=== PATIENT | female | born 1940 | race Caucasian/White ===

== ENCOUNTER 2016-06-26 07:46 | Outpatient (CLI) | payer MEDICARE, OTHER | END 2016-06-26 07:47 | disposition home or self-care (01) | DX: Z00.00 Encounter for general adult medical examination without abnormal findings (principal); E87.8 Other disorders of electrolyte and fluid balance, not elsewhere classified; E55.9 Vitamin D deficiency, unspecified; E78.5 Hyperlipidemia, unspecified ==

== ENCOUNTER 2016-07-21 08:16 | Outpatient (CLI) | payer MEDICARE, OTHER ==
--- NOTE | 2016-07-23 14:46 | Mammography Report ---
DIGITAL SCREENING MAMMOGRAM: 07/21/2016 CLINICAL INDICATION: A 75-year-old with history of benign left breast biopsy for screening. COMPARISON: 08/2014, 07/2013, 06/2012, 06/2011, 06/2010, 05/2009, 11/2007. TECHNIQUE: Routine CC and MLO projections were obtained of the breasts as well as bilateral laterall y exaggerated craniocaudal views. FINDINGS: The breasts demonstrate heterogeneously dense fibroglandular parenchyma bilaterally. Coar se, typically benign calcifications are present. Postbiopsy changes in the left lower central breast are stable. No suspicious masses, clustered microcalcifications, or regions of architectural distor tion are identified. IMPRESSION: BENIGN FINDINGS. RECOMMENDATION: Routine annual screening unless otherwise clinically indicated. BI-RADS category 2, benign findings. STANDARD QUALIFYING STATEMENTS 1. This examination was reviewed with the aid of Computer-Aided Detection (CAD). 2. A negative or benign imaging report should not delay biopsy if clinically suspicious findings are present. Consider surgical consultation if warranted. More than 5% of cancers are not identified by i maging. 3. Dense breasts may obscure an underlying neoplasm. JOB #: [id number] EXT JOB #:[id number]
== END 2016-07-21 08:17 | disposition home or self-care (01) ==
LOC: DI 08:16
PROVIDERS: ATTEND Physician Assistant Medical
DX: Z12.31 Encounter for screening mammogram for malignant neoplasm of breast (principal)
CPT/HCPCS: 77067

== ENCOUNTER 2017-03-30 12:01 | Outpatient (CLI) | payer MEDICARE, OTHER ==
[2017-03-30 12:44] LABS: BILIRUBIN,URINE NEGATIVE (NEGATIVE); GLUCOSE, URINE (UA) NEGATIVE (NEGATIVE); KETONES,URINE (UA) NEGATIVE (NEGATIVE); LEUKOCYTE ESTERASE, URINE NEGATIVE (NEGATIVE); NITRITE,URINE NEGATIVE (NEGATIVE); OCCULT BLOOD,URINE TRACE-INTA (NEGATIVE); PROTEIN,URINE NEGATIVE (NEGATIVE); UROBILINOGEN,URINE 0.2 (NORMAL) E.U./dL (NORMAL)
[2017-03-30 12:46] LABS: ALBUMIN 4.5 g/dL (3.2-5.5); ALBUMIN/GLOBULIN RATIO 1.6 (1.0-2.2); BASOPHILS # (AUTO) 0.1 10^3/uL (0.0-0.1); BASOPHILS % (AUTO) 1.5 %; BILIRUBIN,TOTAL 0.5 mg/dL (0.2-1.0); CALCIUM 9.5 mg/dL (8.5-10.3); CREATININE 0.9 mg/dL (0.4-1.0); EOSINOPHILS # (AUTO) 0.1 10^3/uL (0.0-0.7); EOSINOPHILS % (AUTO) 1.2 %; HGB - HEMOGLOBIN 13.9 g/dL (12.0-16.0); LYMPHOCYTES % (AUTO) 27.6 %; MEAN CORPUSCULAR HGB CONC 35.5 g/dL (32.0-36.0); MEAN CORPUSCULAR VOLUME 78.8 fL (81.0-99.0); MEAN PLATELET VOLUME 7.7 fL (7.9-10.8); MONOCYTES # (AUTO) 0.4 10^3/uL (0.0-1.0); NEUTROPHILS # (AUTO) 4.6 10^3/uL (1.5-6.6); NEUTROPHILS % (AUTO) 63.7 %; PLT - PLATELET COUNT 252 10^3/uL (130-450); RED BLOOD COUNT 4.96 10^6/uL (4.20-5.40); RED CELL DISTRIBUTION WIDTH 13.4 % (12.0-15.0); TOTAL PROTEIN 7.4 g/dL (6.7-8.2); WHITE BLOOD COUNT 7.2 x10^3/uL (4.8-10.8)
[2017-03-30 12:48] LABS: CLARITY,URINE CLEAR (CLEAR)
== END 2017-03-30 12:02 | disposition home or self-care (01) ==
LOC: LAB 12:01
PROVIDERS: ATTEND Obstetrics & Gynecology
DX: N81.4 Uterovaginal prolapse, unspecified (principal); N39.3 Stress incontinence (female) (male)
CPT/HCPCS: 36415; 80053; 81003; 85025; 86850; 86900; 86901; 93005

== ENCOUNTER 2017-03-31 06:08 | Inpatient (IN) | payer MEDICARE, OTHER ==
--- NOTE | 2017-03-30 17:21 | PREOP HISTORY & PHYSICAL ---
DATE OF SERVICE: 03/31/2017 Physician: Avinash Rose MD DIAGNOSES 1. Uterovaginal prolapse (grade 2). 2. Stress urinary incontinence. 3. Fecal incontinence, thought to be secondary to mobility. 4. Osteopenia. 5. Eryn disease with resultant hypothyroidism. INTENDED PROCEDURE: Abdominal hysterectomy (subtotal); sacral colpopexy with mesh; Everett procedure; insertion of suprapubic catheterization. HISTORY OF PRESENT ILLNESS: Patient is a 76-year-old 3, para 3 woman who has had unsuccessful pessary trial. She has had several different pessaries fitted by Dr. Latham. She finds without the pessary she develops midline pelvic pain. Pessary does improve stress urinary incontinence. 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 She lives with her . Most of her urine loss is small volume. There is no urge incontinence component. She was given topical estrogen in preparation for surgery without ill effect. She has never had an abnormal Pap smear. Her last Pap was in 2005. There is no history of postmenopausal bleeding. PAST MEDICAL HISTORY: The patient has hypercholesterolemia. Additionally, she had Eryn disease and subsequent hypothyroidism. Her hypothyroidism is managed by her PCP. The patient has only had 1 vaginal that was via forceps. It was a male weighing 3515 grams. She notes that after the delivery of her second child, she developed a DVT. PAST SURGICAL HISTORY 1. Lumpectomy 1985; 2. Sinus surgery 2013; 3. Tonsillectomy in 1959. 4. Varicose vein stripping 2008. 5. Retinal detachment repair in 2011. ALLERGIES: NO KNOWN DRUG ALLERGIES. MEDICATIONS: Levothyroxine 0.11. REVIEW OF SYSTEMS CONSTITUTIONAL: Negative. HEENT: Sinus headaches occasionally. CARDIOVASCULAR: No irregular heartbeat, skipped beats or chest pain. RESPIRATORY: Negative. No shortness of breath. GI: Negative. GENITOURINARY: Stress urinary incontinence, pelvic pressure and pain and occasional loss of stool. Reference HPI. MUSCULOSKELETAL: Osteopenia. DERMATOLOGIC: Negative. BREASTS: No mass, no tenderness. NEUROLOGIC: Negative. PSYCHOLOGIC: Negative. FAMILY HISTORY: Asthma mother. No inheritable diseases noted. Longevity. SOCIAL HISTORY: , never smoker. No drug tobacco or alcohol use, picky about eating habits. PHYSICAL EXAMINATION GENERAL: Well groomed. Alert and oriented, and cooperative, slender build. NECK: Supple neck. No thyromegaly. HEENT: Good oral hygiene. No pharyngitis. Nonicteric sclerae. CARDIAC: Regular. No significant murmur or gallop. LUNGS: Clear to auscultation. No wheeze. ABDOMEN: Flat, soft, nontender. No herniation detected. No mass. SKIN: Smooth and clear. NEUROLOGIC: Fluent speech, good sense of humor. Moves all 4 extremities well. Cranial nerves grossly intact. PSYCHOLOGIC: Does not appear to be anxious, alert. BREASTS: Deferred. PELVIC: External genitalia normal BUS; No lesions, slight atrophy. Urethral palpation normal. UV mobility noted with stress incontinence on cough. VAGINA: Cystocele noted grade 2 with a rectocele grade 3 without a pessary. Poor apical support. CERVIX: Hypermobility, hyperkeratosis. UTERUS: A 6-week size third-degree prolapse. ADNEXA: Difficult to evaluate, but no mass or tenderness noted. ASSESSMENT AND PLAN: Patient is a 76-year-old woman who enjoys good health and is active. Prolapse degrades her quality of life, and she has failed pessary treatment. She seeks a surgical solution. We discussed various solutions including colpocleisis, aggressive anterior and posterior repair with colposuspension (sacrospinous colpopexy) and expectant management. The patient desires the most resilient repair because of the longevity in her family. We discussed sacral colpopexy with mesh, combined with a subtotal hysterectomy, Everett procedure and removal of ovaries and tubes. She desires this procedure because of its resilience but recognizes the more risk due to blood loss, infection and complexity of surgery. Risks were discussed, inclusive of blood loss, transfusion, infection, damage to bladder and ureters and damage to abdominal viscera. She realizes in extreme situations anesthesia reaction or other factors could result in . In discussing bladder training methods, she would prefer the suprapubic to avoid self straight cathing. Informed consent paperwork was completed. In preparation for surgery she will be in a low dorsal lithotomy position. We will need Y [employer] mesh available. LigaSure needed and hysteroscopy set for inspection of bladder and insertion of suprapubic catheter. TD: 03/30/2017 16:35 LIGIA
[2017-03-31] MEDS ORDERED: ceFAZolin 2 GM/50 ML 2 GM/50 ML BAG IV ONE (06:38)
[2017-03-31] MEDS ORDERED: LACTATED RINGERS 1,000 ML IV ONE ×3 (06:47→10:02)
[2017-03-31] MEDS ORDERED: MORPHINE 2 MG/ML SYRINGE IVP PRN (07:35)
[2017-03-31] MEDS ORDERED: ONDANSETRON ODT 4 MG TABLET TL PRN (07:35)
[2017-03-31] MEDS ORDERED: HYDROcod/ACETAM 5/325 MG TABLET PO PRN (07:35)
[2017-03-31] MEDS ORDERED: SODIUM CHLORIDE FLUSH 0.9% 10 ML SYRINGE IVP PRN (07:35)
--- NOTE | 2017-03-31 08:06 | OPERATIVE REPORT ---
Operative Report - General Admit Date: 03/31/17 Planned Procedure: Pelvic reconstruction Pre-Op Diagnosis: Uterine/vaginal prolapse grade 3; stress urinary incontinence Procedure Performed: Sacral colpopexy with Y mesh; Everett procedure; Subtotal abdominal hysterectomy; Bilateral salpingo-oophorectomy; insertion of suprapubic catheter; cystoscopy Post Op Diagnosis: Same as above - Procedure Note Primary Surgeon: Avinash Rose MD, F ACOG, FICS Secondary Surgeon: Avinash Stokes MD, F ACOG Anesthesia Technique: Combo spinal/epidural Pathology: Uterus, tubes and ovaries Estimated Blood Loss (mL): 200 Urine Output (mL): 150 Drain/Tube Type: Other (Suprapubic urinary catheter) Complications: Nonoe - Other Other Information/Narrative: Full dictation of the procedure done
[2017-03-31] MEDS ORDERED: GENTAMICIN 40 MG/1 ML 2 ML MDV ONE ×2 (09:14→10:20)
[2017-03-31] MEDS ORDERED: GENTAMICIN 40 MG/1 ML 2 ML MDV IL ONE ×2 (09:52→10:16)
[2017-03-31] MEDS ORDERED: fent/BUPIV 2 MCG/0.125% 250 ML EP ONE (12:10)
--- NOTE | 2017-03-31 12:46 | PROCEDURE REPORT ---
DATE OF SERVICE: 03/30/2017 Physician: Avinash Rose MD PREOPERATIVE DIAGNOSIS: Uterovaginal prolapse, grade 3; stress urinary incontinence. POSTOPERATIVE DIAGNOSIS: Uterovaginal prolapse, grade 3; stress urinary incontinence. Pelvic congestion syndrome with extensive varicosities. PROCEDURE PERFORMED: Sacral colpopexy with [employer] Y mesh; Everett procedure; subtotal hysterectomy; insertion of a suprapubic catheter; bilateral salpingo-oophorectomy. SURGEON: Avinash Rose MD, FACOG, FICS. STRUCTURES ENGINEER: Avinash Reed MD, FACOG. 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 ANESTHESIA TYPE: Combination spinal/epidural. PATHOLOGY: Tubes and ovaries with uterine corpus. IV FLUIDS: Approximately 1200 mL. BLOOD LOSS: 200 mL COMPLICATIONS: None. URINE OUTPUT 150-200 clear urine. DRAINS: Suprapubic catheter. FINDINGS: Prior to surgery, a second degree uterovaginal prolapse was found with the cervix extruding to the introitus. Note that in office exam, there was a third degree uterovaginal prolapse with the patient in the standing position. At the time of laparotomy, the uterus was found to be multinodular with multiple fibroids. Ovaries appeared to be normal as did the tubes. The pelvis had numerous large varicosities and hypervascularity. Postprocedure cystoscopy found the bladder to be undamaged. Free flowing urine from the left and right ureteric jets. Postoperative examination of the vagina finds the uterus well suspended into the pelvis. There was no notable cystorectocele. TECHNIQUE: Prior to the procedure, I had a final discussion with the patient and her . Mechanics, risks and benefits were reviewed and she consents to a reconstructive surgery. The patient was brought to the operating room, placed in sitting position for placement of spinal/epidural. Regional anesthesia was uneventfully placed and she was moved to the supine and then to the low dorsal lithotomy position using mobile Yellofin stirrups. She was prepped and draped in the customary sterile fashion inclusive of Monroe catheter. Sponge stick was placed into the vagina. A timeout briefing was done per protocol. Before the procedure began, we ensured that anesthesia was good through to level T10. The abdominal wall was uneventfully entered with a Pfannenstiel incision. The abdominal contents were then packed superiorly. Fabiano retractor was placed, however, it did not provide sufficient retraction and it was replaced with a Hernandez O'Carlos A retractor. The abdominal contents were inspected and there were found to be numerous varicosities and hypervascularity. The uterine fundus was grasped with a single-tooth tenaculum and tented superiorly. Beginning on the left side, the ovaries and tubes were retracted medially and superiorly. The ovarian vessels and infundibulopelvic ligament was uneventfully desiccated and divided with LigaSure. Next, the round ligaments were uneventfully desiccated and divided. The Metzenbaums were used to continue dissection towards the uterines. The uterine vessels were desiccated and divided. This process was then repeated uneventfully on the left hand side. The uterus was then circumscribed at the isthmus with monopolar cautery. The uterus was then removed in total. In preparation for apical suspension, the peritoneum of the bladder flap was mobilized with sharp dissection and electrocautery for a distance of approximately 6 cm. This process was done in a similar fashion to a distance of roughly 8 cm in the posterior aspect. These areas were rinsed with antibiotic enriched irrigant. Next, attention was turned to the sacral dissection. Midline was identified and the limits of the bony sacrum. The rectal colon was retracted laterally to the left, revealing the mesentery. In a free vascular space, the mesentery was entered with electrocautery and incision was carried downward to the pelvis at roughly the level just above the pubis. Using electrocautery and judicious sharp dissection, the fascia above the sacrum, S1 to S2, was exposed. A series of three interrupted sutures of 0 Ethibond were placed in a row across the S1, S2 vertebrae level, anchoring them firmly into the fascia. Middle sacral vein was desiccated to prevent bleeding. Next, the Y mesh was brought out and tailored to the appropriate lengths for the vaginal phase. The anterior leaf of the mesh was then tacked deep and inferiorly to the extent of the dissection using 0 Vicryl, a total of 3 stitches were placed. Next, the lateral portions of mesh were tacked down, 4 stitches on each side of 4-0 Vicryl. In the middle of the mesh tacking sutures of 0 Vicryl were placed. Next, this process was repeated in the posterior vaginal dissection, laying a flat leaf of the mesh against the vaginal wall. The posterior dissection peritoneum was then sewn to the far extent of the medial leaf of sacral dissection and the beginnings of a tunnel created for the extended arm of the mesh. The base mesh arm was then brought to the area of the sacral promontory and adjusted so that there was no tension. At this length, the sacral promontory stitches were then passed through the mesh and the mesh laid snugly and without buckling onto the promontory. The remainder of the peritoneum was then reapproximated creating a peritoneal tunnel for the graft. Note that the graft was confirmed not to be on tension. All operative sites were inspected and found to be hemostatically secure. The instruments were removed from the abdomen, and all packing sponges.. Sponge, needle counts and instrument count were confirmed as correct. The parietal peritoneum was then closed with a running stitch of 2-0 Vicryl. Next, we started Everett procedure. The space of Retzius on both sides were developed and exposed. The Monroe bulb was identified. Medial stitches of 0 Ethibond were placed 1 cm lateral and 1 cm below the UVJ junction, second stitches of Ethibond approximately a cm below and 1.5 cm lateral were then placed on each side. There was bleeding noted on the left medial stitch. This was ligated with 2-0 Vicryl and secured. The vaginal sutures then were passed through the conjoined ligament, creating a V-like suspension of tissue. Care was taken not to over tighten and approximately 1.5 cm or 2 cm of violin string were left. The bladder was then backfilled with sterile normal saline. A small incision was placed with electrocautery in the bladder dome and a hysteroscope inserted. A cystoscopy was conducted and did confirm that there was no incursion into the bladder and both the right and left ureter were functional. At this point, a Monroe catheter was placed through the abdominal wall and through the cystotomy wound. The bulb was inflated and pursestring tied tight to seal the bladder. Fascia was closed with running sutures of 0 Vicryl. Reinforcing interrupted stitches of 0 Vicryl were also placed. The subcutaneous space was closed with interrupted sutures of 2-0 Vicryl. Skin was closed with jil. Suprapubic catheter was then secured with a stitch of 2-0 silk. All wounds were then dressed with antibiotic salve and a clean dry compression bandage. Final sponge, needle & instrument count confirmed correct. A transurethral Monroe was removed from the bladder. A sponge was noted to have a single suture of Vicryl entangling it. This suture was cut and the sponge was uneventfully removed. TD: 03/31/2017 13:45 LIGIA
[2017-03-31] MEDS: SODIUM CHLORIDE FLUSH 0.9% 10 ML SYRINGE IVP SCH ×2 (13:20→18:44)
[2017-03-31] MEDS: POLYETHYLENE GLYCOL 3350 17 GM PACKET PO SCH (13:20)
[2017-03-31] MEDS: LACTATED RINGERS 1,000 ML IV SCH ×2 (13:22→22:08)
[2017-03-31] MEDS ORDERED: NALBUPHINE 20 MG/ML AMP IVP PRN (15:58)
[2017-03-31] MEDS ORDERED: fent/BUPIV 2 MCG/0.125% 250 ML EP PRN (15:58)
[2017-03-31] MEDS ORDERED: ONDANSETRON 4 MG/2 ML VIAL IVP PRN (15:58)
--- NOTE | 2017-03-31 17:25 | PROVIDER PROGRESS NOTE ---
Subjective - Prog Note Date Prog Note Date: 03/31/17 Prog Note Time: 17:30 - Subjective Pt reports feeling: Improved Subjective: Patient is alert and up in bed talking with her . She reports complete pain relief. She notes complete numbness and weakness in her left leg. These changes are most likely secondary to continued epidural.We reviewed the care plan for tomorrow inclusive of epidural discontinuation and bladder training. Objective - Vital Signs/Intake & Output Vital Signs: Vital Signs x48h Temp Pulse Resp BP Pulse Ox 03/31/17 15:36 97.3 F L 67 18 113/53 L 100 03/31/17 13:36 97.2 F L 69 16 108/53 L 100 03/31/17 13:06 97.5 F L 60 16 102/61 100 03/31/17 12:44 95 03/31/17 12:35 100 03/31/17 12:25 96 03/31/17 12:15 97 03/31/17 12:05 100 03/31/17 12:00 100 03/31/17 11:55 100 03/31/17 11:50 100 Intake & Output: Intake & Output 03/28/17 03/29/17 03/30/17 03/31/17 23:59 23:59 23:59 23:59 Output Total 975 Balance -975
[2017-04-01] MEDS: IBUPROFEN 600 MG TABLET PO PRN ×4 (00:05→19:53)
[2017-04-01 06:43] LABS: HGB - HEMOGLOBIN 11.8 g/dL (12.0-16.0)
[2017-04-01 06:46] LABS: BASOPHILS % (AUTO) 0.5 %; EOSINOPHILS # (AUTO) 0.1 10^3/uL (0.0-0.7); EOSINOPHILS % (AUTO) 1.2 %; LYMPHOCYTES % (AUTO) 22.5 %; MEAN CORPUSCULAR HEMOGLOBIN 27.9 pg (27.0-31.0); MEAN CORPUSCULAR HGB CONC 32.9 g/dL (32.0-36.0); MONOCYTES # (AUTO) 0.8 10^3/uL (0.0-1.0); MONOCYTES % (AUTO) 8.6 %; NEUTROPHILS % (AUTO) 67.2 %; PLT - PLATELET COUNT 189 10^3/uL (130-450); RED BLOOD COUNT 4.24 10^6/uL (4.20-5.40); RED CELL DISTRIBUTION WIDTH 13.8 % (12.0-15.0); WHITE BLOOD COUNT 8.9 x10^3/uL (4.8-10.8)
[2017-04-01] MEDS: SODIUM CHLORIDE FLUSH 0.9% 10 ML SYRINGE IVP SCH ×3 (06:46→19:03)
[2017-04-01 06:54] LABS: ALBUMIN 2.9 g/dL (3.2-5.5); ALBUMIN/GLOBULIN RATIO 1.4 (1.0-2.2); BILIRUBIN,TOTAL 0.6 mg/dL (0.2-1.0); CALCIUM 8.3 mg/dL (8.5-10.3); CREATININE 0.8 mg/dL (0.4-1.0)
[2017-04-01] MEDS: LACTATED RINGERS 1,000 ML IV SCH ×2 (07:50→18:39)
[2017-04-01] MEDS ORDERED: ENOXAPARIN 40 MG/0.4 ML SYRINGE SUBQ SCH (09:00)
[2017-04-01] MEDS ORDERED: ePHEDrine 50 MG/ML VIAL IVP ONE (10:15)
[2017-04-01] MEDS ORDERED: PHENYLEPHRINE 50 MG/5 ML VIAL IV ONE (10:15)
[2017-04-01] MEDS ORDERED: GLYCOPYRROLATE 1 MG/5 ML VIAL IVP ONE (10:15)
[2017-04-01] MEDS ORDERED: PROPOFOL 200 MG/20 ML VIAL IVP ONE (10:15)
[2017-04-01] MEDS ORDERED: MIDAZOLAM 2 MG/2 ML VIAL IVP ONE (10:15)
[2017-04-01] MEDS ORDERED: BUPIVACAINE 0.25% PF 10 ML VIAL SUBQ ONE (10:15)
[2017-04-01] MEDS ORDERED: MORPHINE PF 5 MG/10 ML AMP EP ONE (10:15)
[2017-04-01] MEDS ORDERED: BUPIVACAINE 0.5%-EPI 1:200000 PF 30 ML VIAL SUBQ ONE (10:15)
--- NOTE | 2017-04-01 10:26 | ANESTHESIA POST OP EVALUATION ---
Anesthesia Post Eval - Post Anesthesia Eval CV Function Including HR & BP: positive: Stable Pain Control: positive: Adequate Nausea & Vomiting: positive: Negative Mental Status: positive: Appropriate Anesthesia Complications: positive: None - Other Details/Therapies Other Details/Therapies: Followed up with patient regarding post op epidural. Surgeon ordered epidural stopped at 0600. Epidural d/c'd at this time with tip intact. Patient reported good pain control while epidural was infusing. Denies any complications.
[2017-04-01] MEDS: POLYETHYLENE GLYCOL 3350 17 GM PACKET PO SCH (10:27)
[2017-04-01] MEDS: SENNA 8.6 MG TABLET PO PRN ×2 (10:28→23:38)
[2017-04-01] MEDS: LEVOTHYROXINE 112 MCG TABLET PO SCH (10:31)
[2017-04-01] MEDS: HYDROcod/ACETAM 5/325 MG TABLET PO PRN ×3 (16:03→23:38)
--- NOTE | 2017-04-01 18:10 | PROVIDER PROGRESS NOTE ---
Subjective - General Admit Date: 03/31/17 Procedure Date: 03/31/17 Post Op Days: 1 Procedure Performed: Sacral colpopexy with Mesh; subtotal hysterectomy with BSO ; Everett procedure - Review of Systems Wound/Incisions: positive: Dressing dry and intact Drain Type: Suprapubic Drain Output Description: Clear urine General: positive: No symptoms HEENT: positive: No symptoms Pulmonary: positive: No symptoms Cardiovascular: positive: No symptoms Gastrointestinal: positive: No symptoms Genitourinary: positive: Pain (Appropriate pain for pelvic reconstruction) Musculoskeletal: positive: No symptoms Skin: positive: No symptoms Neurological: Psychiatric: positive: No symptoms Objective - Patient Data Vital Signs: Vital Signs x48h Temp Pulse Resp BP Pulse Ox 04/01/17 15:28 98.6 F 81 18 124/56 L 95 04/01/17 13:16 98.1 F 78 16 126/66 97 Weight: Weight 03/30/17 03/31/17 04/01/17 23:59 23:59 23:59 Weight (kg) 61.3 kg Intake & Output: Intake and Output Totals x24h 03/30/17 03/31/17 04/01/17 23:59 23:59 23:59 Intake Total 7888.096 3528 Output Total 1625 2200 Balance -508.333 -620 - Lab Results Lab Results: 04/01/17 06:35 04/01/17 06:35 Other Lab Results: Lab Results x24hrs 04/01/17 04/01/17 Range/Units 06:35 06:35 WBC 8.9 (4.8-10.8) x10^3/uL RBC 4.24 (4.20-5.40) 10^6/uL Hgb 11.8 L (12.0-16.0) g/dL Hct 36.0 L (37.0-47.0) % MCV 85.0 (81.0-99.0) fL MCH 27.9 (27.0-31.0) pg MCHC 32.9 (32.0-36.0) g/dL RDW 13.8 (12.0-15.0) % Plt Count 189 (130-450) 10^3/uL MPV 8.0 (7.9-10.8) fL Neut # 6.0 (1.5-6.6) 10^3/uL Lymph # 2.0 (1.5-3.5) 10^3/uL [place] # 0.8 (0.0-1.0) 10^3/uL Eos # 0.1 (0.0-0.7) 10^3/uL Baso # 0.0 (0.0-0.1) 10^3/uL Absolute Nucleated RBC 0.00 x10^3/uL Nucleated RBC % 0.0 /100WBC Sodium 133 L (135-145) mmol/L Potassium 3.9 (3.5-5.0) mmol/L Chloride 101 (101-111) mmol/L Carbon Dioxide 26 (21-32) mmol/L Anion Gap 6.0 (6-13) BUN 17 (6-20) mg/dL Creatinine 0.8 (0.4-1.0) mg/dL Estimated GFR (MDRD) 70 L (>89) Glucose 115 H (70-100) mg/dL Calcium 8.3 L (8.5-10.3) mg/dL Total Bilirubin 0.6 (0.2-1.0) mg/dL AST 24 (10-42) IU/L ALT 15 (10-60) IU/L Alkaline Phosphatase 48 (42-121) IU/L Total Protein 5.0 L (6.7-8.2) g/dL Albumin 2.9 L (3.2-5.5) g/dL Globulin 2.1 (2.1-4.2) g/dL Albumin/Globulin Ratio 1.4 (1.0-2.2) - Current Medications Current Medications: Current Medications Generic Name Dose Route Start Last Admin Trade Name Freq PRN Reason Stop Dose Admin Acetaminophen/Hydrocodone Bitart 1 tab 04/01/17 15:37 04/01/17 16:03 Friedens 5/325 PO 1 tab Q4HR PRN Administration PAIN Lactated Ringer's 1,000 mls @ 100 mls/hr 03/31/17 08:00 04/01/17 07:50 Lr IV 100 mls/hr .Q10H BLAIRE Administration Ibuprofen 600 mg 03/31/17 07:35 04/01/17 13:03 Motrin PO 600 mg Q6HR PRN Administration Pain 1 to 4 Levothyroxine Sodium 112 mcg 04/01/17 10:00 04/01/17 10:31 Synthroid PO 112 mcg QDAC BLAIRE Administration Nalbuphine HCl 2.5 - 5 mg 03/31/17 15:58 03/31/17 22:07 Nubain IVP 2.5 mg Q4HR PRN Administration Severe Itching Polyethylene Glycol 17 gm 03/31/17 09:00 04/01/17 10:27 Miralax PO 17 gm DAILY BLAIRE Administration Senna 8.6 mg 04/01/17 09:54 04/01/17 10:28 Senokot PO 8.6 mg DAILY PRN Administration Constipation Sodium Chloride 10 ml 03/31/17 14:00 04/01/17 11:34 Normal Saline Flush 0.9% IVP Not Given Q8HR BLAIRE Physical Exam - Physical Exam General: positive: No acute distress, Well developed/nourished, Alert HEENT: positive: EOMI, Moist mucous membranes Neck: positive: Supple w/out meningeal sx Cardiac: positive: Regular Rate, Regular Rhythm Resipratory: positive: Clear to ausultation brandon Abdomen: positive: Normal Bowel sounds, Other (Only mildly tender in the lower quadrants) Female : positive: Normal external, Other (Suprapubic catheter functional and sutured into place) Extremities: positive: Normal ROM. negative: Non tender Skin: positive: Warm and dry Neurologic: positive: Alert and Oriented X 3, Normal motor/no weakness, Normal Speech Assessment/Plan - Assessment/Plan Assessment: Patient is recovering normally from pelvic reconstructive surgery. She is cardiovascularly stable and there is no current evidence of DVT.Compression boots in place and shortly Lovenox will begin.Epidural anesthetic was discontinued earlier and expect sensation to gradually return.This may delay bladder training until 0900. Plan: Patient already on continuous Motrin 600 every 6 hours. Begin Friedens 325/5 1-2 tabs every 4 hours breakthrough pain.We will begin suprapubic bladder training when patient is ambulatory. Reviewed suprapubic bladder training with [place] the nurse present, all questions answered. Detailed orders put in to nursing note/ order.Patient is eager to begin bladder training
[2017-04-01] MEDS: MORPHINE 2 MG/ML CARPUJECT IVP PRN (19:03)
[2017-04-01] MEDS ORDERED: BACITRACIN OINT TOP PRN (20:37)
[2017-04-02] MEDS: IBUPROFEN 600 MG TABLET PO PRN ×2 (02:29→08:54)
[2017-04-02] MEDS: LACTATED RINGERS 1,000 ML IV SCH ×3 (02:32→20:41)
[2017-04-02] MEDS: HYDROcod/ACETAM 5/325 MG TABLET PO PRN ×2 (05:26→11:25)
--- NOTE | 2017-04-02 05:49 | PROVIDER PROGRESS NOTE ---
Subjective - General Admit Date: 03/31/17 Procedure Date: 03/31/17 Post Op Days: 2 Procedure Performed: Sacral colpopexy with Mesh; subtotal hysterectomy with BSO ; Everett procedure - Review of Systems Wound/Incisions: positive: Healing well ([place] dry, intact NO signs of serosa hematoma or infection) Drain Type: Suprapubic Drain Output Description: Clear urine Approximate mls Output: Average voided volume 250 cc, post void residuals 350 cc General: positive: No symptoms HEENT: positive: No symptoms Pulmonary: positive: No symptoms Cardiovascular: positive: No symptoms Gastrointestinal: positive: No symptoms Genitourinary: positive: Pain (Pain now controlled with combination of Motrin and [place]. Originally patient was hesitant to take pain meds but now understands the necessity) Musculoskeletal: positive: No symptoms, Other (No calf tenderness swelling or Homans sign) Skin: positive: No symptoms Psychiatric: positive: No symptoms Objective - Patient Data Vital Signs: Vital Signs x48h Temp Pulse Resp BP Pulse Ox 04/01/17 23:35 99.1 F 75 17 126/65 95 Weight: Weight 03/31/17 04/01/17 04/02/17 23:59 23:59 23:59 Weight (kg) 61.3 kg Intake & Output: Intake and Output Totals x24h 03/31/17 04/01/17 04/02/17 23:59 23:59 23:59 Intake Total 1936.379 0147 788.333 Output Total 1625 3250 1300 Balance -508.333 20 -511.667 - Lab Results Lab Results: 04/01/17 06:35 04/01/17 06:35 Other Lab Results: Lab Results x24hrs 04/01/17 04/01/17 Range/Units 06:35 06:35 WBC 8.9 (4.8-10.8) x10^3/uL RBC 4.24 (4.20-5.40) 10^6/uL Hgb 11.8 L (12.0-16.0) g/dL Hct 36.0 L (37.0-47.0) % MCV 85.0 (81.0-99.0) fL MCH 27.9 (27.0-31.0) pg MCHC 32.9 (32.0-36.0) g/dL RDW 13.8 (12.0-15.0) % Plt Count 189 (130-450) 10^3/uL MPV 8.0 (7.9-10.8) fL Neut # 6.0 (1.5-6.6) 10^3/uL Lymph # 2.0 (1.5-3.5) 10^3/uL [place] # 0.8 (0.0-1.0) 10^3/uL Eos # 0.1 (0.0-0.7) 10^3/uL Baso # 0.0 (0.0-0.1) 10^3/uL Absolute Nucleated RBC 0.00 x10^3/uL Nucleated RBC % 0.0 /100WBC Sodium 133 L (135-145) mmol/L Potassium 3.9 (3.5-5.0) mmol/L Chloride 101 (101-111) mmol/L Carbon Dioxide 26 (21-32) mmol/L Anion Gap 6.0 (6-13) BUN 17 (6-20) mg/dL Creatinine 0.8 (0.4-1.0) mg/dL Estimated GFR (MDRD) 70 L (>89) Glucose 115 H (70-100) mg/dL Calcium 8.3 L (8.5-10.3) mg/dL Total Bilirubin 0.6 (0.2-1.0) mg/dL AST 24 (10-42) IU/L ALT 15 (10-60) IU/L Alkaline Phosphatase 48 (42-121) IU/L Total Protein 5.0 L (6.7-8.2) g/dL Albumin 2.9 L (3.2-5.5) g/dL Globulin 2.1 (2.1-4.2) g/dL Albumin/Globulin Ratio 1.4 (1.0-2.2) - Current Medications Current Medications: Current Medications Generic Name Dose Route Start Last Admin Trade Name Freq PRN Reason Stop Dose Admin Acetaminophen/Hydrocodone Bitart 1 tab 04/01/17 15:37 04/02/17 05:26 [place] 5/325 PO 1 tab Q4HR PRN Administration PAIN Lactated Ringer's 1,000 mls @ 100 mls/hr 03/31/17 08:00 04/02/17 02:32 Lr IV 100 mls/hr .Q10H BLAIRE Administration Ibuprofen 600 mg 03/31/17 07:35 04/02/17 02:29 Motrin PO 600 mg Q6HR PRN Administration Pain 1 to 4 Levothyroxine Sodium 112 mcg 04/01/17 10:00 04/01/17 10:31 Synthroid PO 112 mcg QDAC BLAIRE Administration Morphine Sulfate 2 mg 04/01/17 15:38 04/01/17 19:03 Morphine (Carpuject) IVP 2 mg Q2HR PRN Administration PAIN Nalbuphine HCl 2.5 - 5 mg 03/31/17 15:58 03/31/17 22:07 Nubain IVP 2.5 mg Q4HR PRN Administration Severe Itching Polyethylene Glycol 17 gm 03/31/17 09:00 04/01/17 10:27 Miralax PO 17 gm DAILY BLAIRE Administration Senna 8.6 mg 04/01/17 09:54 04/01/17 23:38 Senokot PO 8.6 mg DAILY PRN Administration Constipation Sodium Chloride 10 ml 03/31/17 14:00 04/01/17 19:03 Normal Saline Flush 0.9% IVP 10 ml Q8HR BLAIRE Administration Physical Exam - Physical Exam General: positive: No acute distress HEENT: positive: Moist mucous membranes Neck: positive: Supple w/out meningeal sx, No JVD Abdomen: positive: Normal Bowel sounds, Other (Slight bloating; No bowel movement despite laxatives) Female : positive: Normal external, Other (Suprapubic catheter intact and functional), Cheese Cook present Extremities: positive: No pedal edema, Non tender, Pedal Pulses Present Skin: positive: Warm and dry Neurologic: positive: Alert and Oriented X 3, Normal motor/no weakness, Normal Sensation, Normal Speech Assessment/Plan - Assessment/Plan Assessment: Patient recovering as expected from reconstructive surgery without evident complications. Patient's medical condition is stable. Due to prior history of DVT, Lovenox is being used for this hospitalization. Post Everett procedure bladder training proceeding somewhat slowly because of semi-flaccid bladder with probable over distention preop That in turn leads to voiding dysfunction. First day bladder training went well and patient must learn to manage the Suprapubic voiding training on her own prior to discharge. Plan: Plan for Wednesday * Continue suprapubic bladder training with patient doing all the steps successfully. * Nursing education and supervision of self directed suprapubic bladder training. If patient cannot achieve competence possibly we can enlist a family member to supervise this activity. * Nursing education on suprapubic care * Continue combination Motrin/[place] analgesics * Patient to ambulate the halls at least 3 times daily * Continue Lovenox * Continue stool softener and laxative regimen * Dr. Katherine Hernandez to become managing attending physician for the remainder of patient's hospitalization. * Have patient schedule a postoperative appointment with me on Wednesday, * creative services writer assessment and recommendations for supportive services post discharge
[2017-04-02] MEDS: SODIUM CHLORIDE FLUSH 0.9% 10 ML SYRINGE IVP SCH ×3 (06:42→19:46)
[2017-04-02] MEDS: LEVOTHYROXINE 112 MCG TABLET PO SCH (06:44)
[2017-04-02] MEDS: ENOXAPARIN 40 MG/0.4 ML SYRINGE SUBQ SCH (08:52)
[2017-04-02] MEDS: POLYETHYLENE GLYCOL 3350 17 GM PACKET PO SCH (08:54)
[2017-04-02] MEDS ORDERED: MAGNESIUM HYDROXIDE 2,400 MG/30 ML UDC PO ONE (16:05)
[2017-04-02] MEDS: SIMETHICONE CHEW 80 MG TABLET PO SCH ×2 (19:51→19:52)
[2017-04-02] MEDS: MORPHINE 2 MG/ML CARPUJECT IVP PRN (21:14)
[2017-04-03] MEDS: SODIUM CHLORIDE FLUSH 0.9% 10 ML SYRINGE IVP SCH (05:36)
[2017-04-03] MEDS: LEVOTHYROXINE 112 MCG TABLET PO SCH (06:00)
[2017-04-03] MEDS: LACTATED RINGERS 1,000 ML IV SCH (06:01)
[2017-04-03] MEDS: SIMETHICONE CHEW 80 MG TABLET PO SCH (09:13)
[2017-04-03] MEDS: POLYETHYLENE GLYCOL 3350 17 GM PACKET PO SCH (09:13)
[2017-04-03] MEDS: ENOXAPARIN 40 MG/0.4 ML SYRINGE SUBQ SCH (09:13)
--- NOTE | 2017-04-03 09:52 | PROVIDER PROGRESS NOTE ---
Subjective - General Admit Date: 03/31/17 Procedure Date: 03/31/17 Post Op Days: 3 Procedure Performed: Sacral colpopexy with Mesh; subtotal hysterectomy with BSO ; Everett procedure - Review of Systems Wound/Incisions: positive: Healing well ([place] dry, intact NO signs of serosa hematoma or infection. No erythema, or edema.) Drain Type: Suprapubic Drain Output Description: Clear urine Approximate mls Output: Average voided volume 250 cc, post void residuals 350 cc General: positive: No symptoms HEENT: positive: No symptoms Pulmonary: positive: No symptoms Cardiovascular: positive: No symptoms Gastrointestinal: positive: No symptoms Genitourinary: positive: Pain (Pain now controlled with combination of Motrin and [place]. Originally patient was hesitant to take pain meds but now understands the necessity) Musculoskeletal: positive: No symptoms, Other (No calf tenderness swelling or Homans sign) Skin: positive: No symptoms Psychiatric: positive: No symptoms Objective - Patient Data Vital Signs: Vital Signs x48h Temp Pulse Resp BP Pulse Ox 04/03/17 08:15 99.5 F 80 18 130/70 96 04/03/17 06:14 99.3 F 84 16 130/63 93 Intake & Output: Intake and Output Totals x24h 04/01/17 04/02/17 04/03/17 23:59 23:59 23:59 Intake Total 3270 3863.333 1233.333 Output Total 3250 5965 925 Balance 20 -2101.667 308.333 - Lab Results Lab Results: 04/01/17 06:35 04/01/17 06:35 - Current Medications Current Medications: Current Medications Generic Name Dose Route Start Last Admin Trade Name Freq PRN Reason Stop Dose Admin Acetaminophen/Hydrocodone Bitart 1 tab 04/01/17 15:37 04/02/17 11:25 [place] 5/325 PO 1 tab Q4HR PRN Administration PAIN Enoxaparin Sodium 40 mg 04/02/17 09:00 04/03/17 09:13 Lovenox SUBQ 40 mg DAILY BLAIRE Administration Lactated Ringer's 1,000 mls @ 100 mls/hr 03/31/17 08:00 04/03/17 06:01 Lr IV 100 mls/hr .Q10H BLAIRE Administration Ibuprofen 600 mg 03/31/17 07:35 04/02/17 08:54 Motrin PO 600 mg Q6HR PRN Administration Pain 1 to 4 Levothyroxine Sodium 112 mcg 04/01/17 10:00 04/03/17 06:00 Synthroid PO 112 mcg QDAC BLAIRE Administration Morphine Sulfate 2 mg 04/01/17 15:38 04/02/17 21:14 Morphine (Carpuject) IVP 2 mg Q2HR PRN Administration PAIN Nalbuphine HCl 2.5 - 5 mg 03/31/17 15:58 03/31/17 22:07 Nubain IVP 2.5 mg Q4HR PRN Administration Severe Itching Ondansetron HCl 4 mg 03/31/17 15:58 04/02/17 21:10 Zofran Inj IVP 4 mg Q6HR PRN Administration Nausea / Vomiting Polyethylene Glycol 17 gm 03/31/17 09:00 04/03/17 09:13 Miralax PO 17 gm DAILY BLAIRE Administration Senna 8.6 mg 04/01/17 09:54 04/01/17 23:38 Senokot PO 8.6 mg DAILY PRN Administration Constipation Simethicone 80 mg 04/02/17 20:00 04/03/17 09:13 Mylicon PO 80 mg 0900,1300,1800,2100 BLAIRE Administration Sodium Chloride 10 ml 03/31/17 14:00 04/03/17 05:36 Normal Saline Flush 0.9% IVP Not Given Q8HR BLAIRE Impression/Plan - Problem List Problem List: 76 yo S/p 03/31/2017 Subtotal hysterectomy, BSO, Everett, sacral colpopexy with Y mesh, suprapubic catheter insertion and cystoscopy Normal recovery RE hysterectomy but slow progress of bladder Stable condition Discharge to home: Patient will go home with suprapubic catheter in-situ with empyting bag. Continue voiding trials. Explained to the patient that we need PVR <75 mL before we can removed the suprapubic catheter. This may take days to weeks. Will remove jil and apply steri strips. Patient has Rxs written by Dr. Rose. Follow up with Dr. Rose on Wednesday. Continue Lovenox for DVT prevention. Call for worsening fevers, chills, abdominal pain or vaginal bleeding. Discharge summary dictation: [id number] Departure - Departure Disposition: Home, Self Care Condition: Good Record reviewed to determine appropriate education?: Yes Follow-Up: Ashleigh Fox PA-C [Primary Care Provider] -
[2017-04-03 10:20] VITALS: BP 140/72
--- NOTE | 2017-04-03 10:26 | DISCHARGE SUMMARY ---
DATE OF ADMISSION: 03/31/2017 DATE OF DISCHARGE: 04/03/2017 DIAGNOSES ON ADMISSION: 1. A 76-year-old G3, P-3-0-0-3. 2. Uterine prolapse, grade 2. 3. Stress urinary incontinence. DIAGNOSES ON DISCHARGE 1. A 76-year-old G3, P-3-0-0-3. 2. Status post 03/31/2017 subtotal hysterectomy, bilateral salpingo- oophorectomy, Everett procedure, sacral colpopexy with Y mesh, suprapubic catheter and cystoscopy. 3. Normal recovery, but slow progress on bladder training. 4. Stable condition. BRIEF HISTORY: The patient is a patient of [facility] who has had problem of uterovaginal prolapse. She has failed outpatient pessary trials. She verbalized her desire to proceed with more definitive therapy via surgery. On 03/31/2017, she was admitted to the hospital and underwent subtotal hysterectomy, bilateral salpingo-oophorectomy, Everett procedure, sacral colpopexy with Y mesh, suprapubic catheter and cystoscopy. Surgery went well and there were no complications. The patient was placed on Lovenox secondary to her history of a DVT . The patient's recovery from her hysterectomy is going well, although her bladder is having a slow time recovering. Her post-void residual is at minimum of 150 and can be up to 250 mL. Because of this, we will have her continue on bladder training and see Dr. Rose for followup. She has a scheduled appointment on 04/06/2017 at [facility]. The patient will be continued on Lovenox at home for DVT prevention. Dr. Rose has arranged for her medications at home for her convalescence for Motrin and [place], in addition to her Lovenox. The patient is doing well otherwise, and she is ambulating and tolerating a regular diet. She does feel a little bit of bloating and her appetite is decreased. She verbalizes a desire to go home and would feel much better if she can recuperate there. Her pain is controlled with Motrin and [place], though she is hesitant to take the [place] because it would cause her GI upset, which could lead to nausea. I did recommend the patient take her medications with something in her stomach. We will discharge the patient today after jil have been removed and Steri-Strips placed. She will have an emptying bag to go home with her suprapubic catheter. The patient should call should she have any worsening fevers, chills, abdominal pain or vaginal bleeding. TD: 04/03/2017 11:25 MTDSean
== END 2017-04-03 11:16 | disposition home or self-care (01) | DRG 743 ==
LOC: MS2 06:08
PROVIDERS: ADMIT Obstetrics & Gynecology; ATTEND Obstetrics & Gynecology
PROC: 0TSD0ZZ Reposition Urethra, Open Approach (ICD-10-PCS; 2017-03-31)
PROC: 0UT70ZZ Resection of Bilateral Fallopian Tubes, Open Approach (ICD-10-PCS; 2017-03-31)
PROC: 0UT20ZZ Resection of Bilateral Ovaries, Open Approach (ICD-10-PCS; 2017-03-31)
PROC: 0T9B00Z Drainage of Bladder with Drainage Device, Open Approach (ICD-10-PCS; 2017-03-31)
PROC: 0UT90ZL Resection of Uterus, Supracervical, Open Approach (ICD-10-PCS; principal; 2017-03-31 07:30)
PROC: 0UUG0JZ Supplement Vagina with Synthetic Substitute, Open Approach (ICD-10-PCS; 2017-03-31 07:30)
DX: N81.3 Complete uterovaginal prolapse (principal); N39.3 Stress incontinence (female) (male); N94.89 Other specified conditions associated with female genital organs and menstrual cycle; I86.2 Pelvic varices; E06.3 Autoimmune thyroiditis; E78.00 Pure hypercholesterolemia, unspecified; D25.1 Intramural leiomyoma of uterus; D27.1 Benign neoplasm of left ovary; R15.9 Full incontinence of feces; M85.80 Other specified disorders of bone density and structure, unspecified site; Z86.718 Personal history of other venous thrombosis and embolism
CPT/HCPCS: 36415; 80053; 85025

== ENCOUNTER 2017-04-15 16:18 | Outpatient (CLI) | payer MEDICARE, OTHER ==
--- NOTE | 2017-04-15 17:22 | CT Report ---
EXAM: CT PELVIS EXAM DATE: 04/15/2017 04:45 PM. CLINICAL HISTORY: Concern for retention of physician of suprapubic catheter. COMPARISONS: None. TECHNIQUE: Routine helical CT imaging was performed through the pelvis. IV contrast: None. Enteric co ntrast: No. Reconstructions: Coronal and sagittal. In accordance with CT protocol optimization, one or more of the following dose reduction techniques w ere utilized for this exam: automated exposure control, adjustment of mA and/or KV based on patient s ize, or use of iterative reconstructive technique. FINDINGS: Visualized Abdominal Organs: Left kidney not visualized. No hydronephrosis of right kidney. Peritoneal Cavity/Bowel: No abnormal intraperitoneal fluid collection or hematoma. There is increased gas in the small bowel without bowel dilation. Pelvic Organs: There is an approximately 10 cm segment of suprapubic catheter located partially withi n the bladder and partially superficial to the bladder in the anterior pelvis. The balloon appears de flated. The most superficial portion of the catheter is located in the right groin and 2.5 cm from th e skin surface. Vasculature: There is vascular calcification without aneurysm in the pelvis. Bones: No significant abnormality. Other: None. IMPRESSION: 1. There is an approximately 10 cm segment of suprapubic catheter which is partially within the urina ry bladder and partially exterior to the bladder extending towards the right groin. The catheter appe ars to have broken approximately 2.5 cm from the skin surface. RADIA The call report notification system was initiated by Dr. Joel Parsons at 17:08 hrs on 04/15/17 . The above findings were discussed with Dr. Rose Dr by Dr. Joel Parsons at 17:20 hrs on 04/15/17. Referring Provider Line: [phone] SITE ID: [id number]
== END 2017-04-15 16:19 | disposition home or self-care (01) ==
LOC: DI 16:18
PROVIDERS: ATTEND Obstetrics & Gynecology
DX: T83.018A Breakdown (mechanical) of other urinary catheter, initial encounter (principal)
CPT/HCPCS: 72192

== ENCOUNTER 2017-04-16 08:40 | Day surgery (SDC) | payer MEDICARE, OTHER ==
--- NOTE | 2017-04-15 21:04 | HISTORY & PHYSICAL EXAMINATION ---
DATE OF SERVICE: 04/16/2017 Physician: Avinash Rose MD DIAGNOSES 1. Retained catheter fragment from suprapubic catheter after attempted in office catheter removal. 2. Recent pelvic reconstruction inclusive of a subtotal hysterectomy, sacral colpopexy with mesh, Everett procedure and insertion of suprapubic catheter. HISTORY OF PRESENT ILLNESS: The patient is a 76-year-old, , 3 , para 3 woman who had grade 3 uterine prolapse and an unsuccessful pessary trial. On 31 March, she underwent an uneventful pelvic reconstruction. Reference my operative note and Dr. Hastings's discharge summary. Surgery was done with a combination spinal and epidural. Her bladder training was begun within the hospital and then continued as an outpatient. Steadily her postvoid residuals decreased until they were consistently under 75 mL. There was no evidence of infection of the suprapubic site. On 04/15/2017, after reviewing the bladder log, we attempted to remove the suprapubic catheter. The balloon was completely deflated and the anchoring stitch on the skin divided. Traction was placed, but the catheter only progressed so far. A sharp tug was given to dislodge it and the catheter tip in situ. Attempt was made to obtain the catheter, but it was too deep within the wound. Subsequently, the patient underwent a CT scan that found a portion of the catheter still within the bladder and another portion within the surgical exit tract. A CT confirmed that the balloon was indeed deflated. Radiology thought that a segment was within the bladder. Plan was made to do cystoscopy and possibly snare the catheter tip and pull it transurethrally out of the body. If not, a mini laparotomy will be necessary to dislodge the catheter tip. CT results and plan were reviewed with the patient in detail. We discussed the risks and benefits. If the catheter remains in place, there is a high possibility of stone or ureterolithiasis, chronic UTI or even postop infection. Currently, there is no evidence of infection. The patient fears general anesthesia and would like to talk to the front facer about redoing a spinal without epidural. During the last surgery, the epidural immobilized her for 24 hours and she did not like it. PAST SURGICAL HISTORY 1. Lumpectomy 1985. 2. Sinus surgery 2013. 3. Tonsillectomy in 1959. 4. Varicose vein stripping 2008. 5. Retinal detachment repair in 2011. ALLERGIES: NO KNOWN DRUG ALLERGIES. MEDICATIONS: Levothyroxine 0.11. REVIEW OF SYSTEMS CONSTITUTIONAL: Negative. HEENT: Occasional sinus headache. CARDIOVASCULAR: No irregular heartbeat, skipped beats or chest pain. RESPIRATORY: Negative. GASTROINTESTINAL: Negative. UROGENITAL: Reference HPI. MUSCULOSKELETAL: Osteopenia. DERMATOLOGIC: Negative. BREASTS: No mass or tenderness. NEUROLOGIC: Negative. HEMATOLOGY/IMMUNITY: The patient had a history of DVT post one of her deliveries. FAMILY HISTORY: No inheritable diseases, longevity. Asthma mother. SOCIAL HISTORY: , never smoker. No drug, tobacco or alcohol use. PHYSICAL EXAMINATION GENERAL: Well groomed. Alert, oriented, and cooperative. Slender build. NECK: Supple. No thyromegaly. HEENT: Good oral hygiene. No pharyngitis. Nonicteric sclerae. CARDIAC: Regular. No significant murmur or gallop. LUNGS: Clear to auscultation. ABDOMEN: Flat, nontender. No herniation detected. No mass. Surgical wound healing normally. Suprapubic site open, but bandaged with a compression wrap. No evidence of infection. SKIN: Normal. NEUROLOGIC: Fluent speech, moves all 4 extremities well. Cranial nerves grossly intact. PSYCHOLOGIC: Appears normal, alert. PELVIC FROM A POSTOPERATIVE EXAM: Normal external genitalia. No lesions. Slight atrophy. Apical suspension restored. No excessive UV mobility evident. Cystocele and rectocele are resolved. The cervix is surgically absent. Uterus surgically absent. Adnexa - cannot feel due to oophorectomy. ASSESSMENT AND PLAN: This is a 76-year-old woman who enjoys good health and active lifestyle. She underwent uneventful prolapse repair, roughly 2 weeks ago. She recovered normally and bladder trained for about 14 days before reaching targeted postvoid residuals. During office suprapubic catheter removal, the distal portion of the catheter, including the balloon portion . A portion of the [place] is in the bladder, while another segment is intraabdominal presumed in the space of [place]. Removal of this foreign body is necessary to prevent long-term complication. PLAN: Will do this first cystoscopy to assess the intravesicular portion of the catheter. If possible, will try to ensnare and remove it intact. If it takes excessive traction, will abandon the transurethral approach since I am uncertain of the structural integrity of the catheter. If necessary, we will convert to a mini laparotomy using the prior Pfannenstiel incision. The patient will have preoperative antibiotics, 3 grams of Ancef. Compression boots will be placed. Anticipate a spinal anesthetic. yenny TD: 04/15/2017 21:03 LIGIA
[2017-04-16] MEDS ORDERED: LACTATED RINGERS 1,000 ML IV ONE ×4 (08:48→14:28)
[2017-04-16] MEDS ORDERED: ceFAZolin 3 GM in SODIUM CHLORIDE 0.9% 100ML 100 ML IV SCH (09:00)
[2017-04-16 09:29] LABS: BASOPHILS # (AUTO) 0.1 10^3/uL (0.0-0.1); BASOPHILS % (AUTO) 1.3 %; EOSINOPHILS # (AUTO) 0.2 10^3/uL (0.0-0.7); EOSINOPHILS % (AUTO) 2.9 %; HGB - HEMOGLOBIN 13.4 g/dL (12.0-16.0); LYMPHOCYTES % (AUTO) 25.4 %; MEAN CORPUSCULAR HEMOGLOBIN 27.6 pg (27.0-31.0); MEAN CORPUSCULAR HGB CONC 32.5 g/dL (32.0-36.0); MEAN PLATELET VOLUME 7.6 fL (7.9-10.8); MONOCYTES # (AUTO) 0.5 10^3/uL (0.0-1.0); MONOCYTES % (AUTO) 6.5 %; NEUTROPHILS % (AUTO) 63.9 %; PLT - PLATELET COUNT 504 10^3/uL (130-450); RED BLOOD COUNT 4.87 10^6/uL (4.20-5.40); WHITE BLOOD COUNT 7.8 x10^3/uL (4.8-10.8)
[2017-04-16] MEDS ORDERED: GENTAMICIN 40 MG/1 ML 2 ML MDV IL ONE ×2 (10:44→11:20)
[2017-04-16] MEDS ORDERED: GENTAMICIN 40 MG/1 ML 2 ML MDV ONE ×2 (10:50→11:21)
[2017-04-16] MEDS ORDERED: BUPIVACAINE 0.25% PF 30 ML VIAL SUBQ ONE (11:54)
[2017-04-16] MEDS ORDERED: BACITRACIN ZINC OINT 15 GM TOP ONE (11:55)
--- NOTE | 2017-04-16 12:08 | XRAY Report ---
DATE OF SERVICE: 04/16/2017 FRONTAL PELVIS: 04/16/2017 CLINICAL INDICATION: Bladder catheter removal. FINDINGS: Frontal view of the pelvis demonstrates a forceps, which per the OR is external to the patient. No other radiopaque foreign body is seen within the pelvis. IMPRESSION: FORCEPS OVERLYING THE PELVIS. TD: 04/16/2017 12:07
[2017-04-16] MEDS ORDERED: ACETAMINOPHEN 1,000 MG/100 ML 100 ML IV ONE (12:10)
[2017-04-16] MEDS ORDERED: PROPOFOL 200 MG/20 ML VIAL IVP ONE (12:10)
[2017-04-16] MEDS ORDERED: LIDOCAINE-MPF 2% 5 ML VIAL IM ONE (12:10)
[2017-04-16] MEDS ORDERED: KETOROLAC 30 MG/ML VIAL IVP ONE (12:10)
--- NOTE | 2017-04-16 12:47 | OPERATIVE REPORT ---
Operative Report - General Procedure Date: 04/16/17 Planned Procedure: Cystoscopy, cystoscopic removal of catheter fragment, possible mini laparot Pre-Op Diagnosis: Retained fragment of suprapubic catheter Procedure Performed: Cystoscopy, attempted transurethral cystoscopic removal of catheter, mini laparotomy with removal of catheter transurethrally Post Op Diagnosis: Same as above, Encircling stitch fixing catheter in place - Procedure Note Primary Surgeon: Avinash Rose MD Secondary Surgeon: Dr. Liam RAMOS Anesthesia Provider: Dr. Rashel Paul MD Anesthesia Technique: General LMA Pathology: Culture sent IV Fluids (mL): 1,200 Estimated Blood Loss (mL): 200 Drain/Tube Type: Other
--- NOTE | 2017-04-16 12:50 | OPERATIVE REPORT ---
Operative Report - General Procedure Date: 04/16/17
--- NOTE | 2017-04-16 12:50 | OPERATIVE REPORT ---
Operative Report - General Procedure Date: 04/16/17
[2017-04-16] MEDS ORDERED: ONDANSETRON 4 MG/2 ML VIAL ONE ×2 (13:22→14:22)
[2017-04-16] MEDS ORDERED: BACITRACIN 50,000 UNIT VIAL ONE (14:27)
[2017-04-16] MEDS ORDERED: BACITRACIN OINT TOP ONE (14:40)
[2017-04-16 15:47] VITALS: BP 138/74
[2017-04-16] MEDS ORDERED: IBUPROFEN 600 MG TABLET PO ONE (16:09)
--- NOTE | 2017-04-16 17:29 | OPERATIVE REPORT ---
DATE OF SERVICE: 04/16/2017 Physician: Avinash Rose MD PREOPERATIVE DIAGNOSES: 1. Retained catheter fragment from suprapubic catheter removal in office. 2. Recent pelvic reconstruction inclusive of subtotal hysterectomy, sacral colpopexy with mesh, Everett procedure and insertion of a suprapubic catheter. POSTOPERATIVE DIAGNOSES: 1. Retained catheter fragment from suprapubic catheter removal in office. 2. Recent pelvic reconstruction inclusive of subtotal hysterectomy, sacral colpopexy with mesh, Everett procedure and insertion of a suprapubic catheter. 3. Suprapubic Catheter Ensnared in Abdominal Wall suture from her prior surgery PROCEDURE PERFORMED: 1. Cystoscopy with attempted removal of catheter transurethrally. 2. Minilaparotomy with removal of suprapubic catheter fragment. SURGEON: Avinash Rose MD, FACOG, FICS CLIENT SUPPORT ASSOCIATE: Dr. Liam MD, FACS ANESTHESIA: Rashel Paul MD; General w LMA ESTIMATED BLOOD LOSS: 25 mL or less. DRAINS: Monroe catheter to gravity with clear urine. MEDICATIONS: Ancef 2 g IV piggyback FINDINGS: 1. Examination of the pelvic reconstruction finds it intact with suspension of the apical vagina. 2. Cystoscopy finds the balloon deflated and approximately 2 cm of Monroe segment intravesically. Attempted transurethral removal failed. Intraabdominally, the catheter was traced out right laterally to its exit point. There was no stricture at the bladder exit. There was dense scar tissue and the catheter was imbedded in it. On dissection of this scar tissue, the catheter was encircled and a suture pierced through the catheter lateral barrel one time. The catheter was inspected and found to be intact. Post-surgery, a flat plate confirmed there were no retained fragments. TECHNIQUE: Prior to the surgery, I had a detailed discussion with the patient and her . She understood the mechanics of cystoscopy and possible mini laparotomy. The risks and benefits were reviewed. Informed consent was signed. The patient was brought to the operating room and placed in the supine position. She was uneventfully induced and LMA placed. She was then moved to the dorsal low lithotomy position and exam under anesthesia conducted. A customary time-out procedure was accomplished. Initially, 70 degree cystoscope was placed and the bladder interior inspected. The exit point from the Monroe was photographed. At this point, a grasper type forceps was inserted with the 12 cystoscope. The distal cath was grasped and placed on tension. The catheter could be advanced to the urethral introitus, but not much farther. Marking hemostats were placed that put the catheter under mild tension. A standard cystoscope was then placed and the bladder inspected. Mucosa was intact and the exit point of the catheter remained. At this point, it was determined the transurethral removal would be futile and that there existed scar tissue, knuckle of catheter tubing or a stitch fixing the catheter. A 3 cm midline minilaparotomy was executed. The fascia was opened. Using traction on the catheter transurethrally, we determined the likely path. Initially, the urachus was identified and a round fibrous cord and traced out towards the suprapubic skin exit wound. It was determined that this was not the catheter. I extended the incision for a distance of [address] Wheeler was called to assist. Before Dr. Wheeler scrubbed in, I isolated the exit point of the catheter from the bladder. Using meticulous dissection the cather tube was exposed and traced along its entire length. A stitch from the abdominal wall closure encircled it and piercing the catheter tube, thereby fixing it in place. This stitch was removed and the catheter then pulled transurethrally out of the bladder. A flat plate was then obtained to document complete removal of the catheter. The areas of dissection were liberally irrigated with gentamicin enriched solution. The fascia was closed with interrupted stitches of 0 Vicryl. The subcutaneous space was irrigated again with gentamicin. The subcutaneous space was closed with interrupted sutures of 2-0 chromic. The skin was closed with jil and bacitracin ointment placed. Additionally, the skin wound was injected with 30 mL of Marcaine 0.25%. At the end of the case, all sponge, needle and instrument counts were confirmed as correct. The catheter was photographed. The patient was uneventfully awakened and taken to the recovery room in good condition. Intraoperative events reviewed and photos were shown to patient and her . They understand that an errant stitch from her first surgery made it impossible for the Suprapubic catheter to be removed normally. A standard transurethral Monroe was in place. TD: 04/16/2017 17:28 LIGIA
== END 2017-04-16 08:41 | disposition home or self-care (01) ==
LOC: SDS 08:40
PROVIDERS: ATTEND Obstetrics & Gynecology
PROC: 0TPB00Z Removal of Drainage Device from Bladder, Open Approach (ICD-10-PCS; 2017-04-16)
PROC: 0TJB8ZZ Inspection of Bladder, Via Natural or Artificial Opening Endoscopic (ICD-10-PCS; principal; 2017-04-16 10:00)
PROC: 0TP Urinary System, Removal (ICD-10-PCS; 2017-04-16 10:00)
DX: T83.098A Other mechanical complication of other urinary catheter, initial encounter (principal); Z18.89 Other specified retained foreign body fragments
CPT/HCPCS: 52000; 53899; 72170; 85025; 87070; 87077; 87181; 87205; A9270; J0131; J7120; 80053

== ENCOUNTER 2017-05-11 10:50 | Outpatient (CLI) | payer MEDICARE, OTHER ==
[2017-05-11 16:11] LABS: BILIRUBIN,URINE NEGATIVE (NEGATIVE); GLUCOSE, URINE (UA) NEGATIVE (NEGATIVE); KETONES,URINE (UA) NEGATIVE (NEGATIVE); LEUKOCYTE ESTERASE, URINE MODERATE (NEGATIVE); NITRITE,URINE NEGATIVE (NEGATIVE); OCCULT BLOOD,URINE SMALL (NEGATIVE); PROTEIN,URINE NEGATIVE (NEGATIVE); UROBILINOGEN,URINE 0.2 (NORMAL) E.U./dL (NORMAL)
[2017-05-11 16:12] LABS: CLARITY,URINE CLOUDY (CLEAR)
[2017-05-11 16:23] LABS: BACTERIA,URINE Moderate /HPF (None Seen); RBC,URINE 0-5 /HPF (0-5); SQUAMOUS EPITHELIAL CELL,UR NONE SEEN (<= Few); WBC CLUMPS,URINE PRESENT
== END 2017-05-11 10:51 | disposition home or self-care (01) ==
LOC: LAB.R 10:50
PROVIDERS: ATTEND Obstetrics & Gynecology
DX: R82.99 Other abnormal findings in urine (principal)
CPT/HCPCS: 81001

== ENCOUNTER 2017-08-23 07:37 | Outpatient (CLI) | payer MEDICARE, OTHER ==
[2017-08-23 12:47] LABS: CHOL/HDL RATIO 3.1 (<4.4); CHOLESTEROL 244 mg/dL; HDL CHOLESTEROL 80 mg/dL; LDL CHOLESTEROL,CALCULATED 147 mg/dL; LDL/HDL RATIO 1.8 (<4.4); VLDL CHOLESTEROL 17 mg/dL
== END 2017-08-23 07:38 | disposition home or self-care (01) ==
LOC: LAB.F 07:37
PROVIDERS: ATTEND Physician Assistant Medical
DX: E78.5 Hyperlipidemia, unspecified (principal); E55.9 Vitamin D deficiency, unspecified; E03.9 Hypothyroidism, unspecified; N30.90 Cystitis, unspecified without hematuria; R35.0 Frequency of micturition
CPT/HCPCS: 36415; 80061; 82306; 83721; 84443; 87086

== ENCOUNTER 2018-08-17 08:00 | Outpatient (CLI) | payer MEDICARE, OTHER ==
[2018-08-17 10:22] LABS: ALBUMIN 4.4 g/dL (3.2-5.5); ALBUMIN/GLOBULIN RATIO 1.6 (1.0-2.2); ALKALINE PHOSPHATASE 56 IU/L (42-121); ALT ALANINE AMINOTRANSFERASE 18 IU/L (10-60); AST ASPARTATE AMINOTRANSFERASE 25 IU/L (10-42); BILIRUBIN,TOTAL 0.6 mg/dL (0.2-1.0); BUN - BLOOD UREA NITROGEN 28 mg/dL (6-20); CALCIUM 9.6 mg/dL (8.5-10.3); CARBON DIOXIDE - CO2 27 mmol/L (21-32); CHLORIDE 102 mmol/L (101-111); CHOL/HDL RATIO 3.2 (<4.4); CHOLESTEROL 251 mg/dL; CREATININE 0.8 mg/dL (0.4-1.0); GFR - MDRD 70 (>89); GLUCOSE 93 mg/dL (70-100); HDL CHOLESTEROL 78 mg/dL; LDL CHOLESTEROL,CALCULATED 159 mg/dL; SODIUM 138 mmol/L (135-145); TOTAL PROTEIN 7.2 g/dL (6.7-8.2); VLDL CHOLESTEROL 14 mg/dL
== END 2018-08-17 23:59 | disposition home or self-care (01) ==
LOC: LAB.F 08:00
PROVIDERS: ATTEND Physician Assistant Medical
DX: E78.5 Hyperlipidemia, unspecified (principal); E03.9 Hypothyroidism, unspecified; Z79.899 Other long term (current) drug therapy
CPT/HCPCS: 36415; 80053; 80061; 83721; 84443

== ENCOUNTER 2018-09-08 14:11 | Outpatient (CLI) | payer MEDICARE, OTHER ==
--- NOTE | 2018-09-09 09:10 | DEXA Report ---
Reason: PREVENTATIVE HEALTH CARE,POSTMENOPAUSAL STATE Procedure Date: 09/08/2018 Accession Number: [id number] / [id number] Procedure: DEX - Dexa Spine and/or Hip CPT Code: FULL RESULT: EXAM: Dexa Spine and/or Hip DATE: 09/08/2018 2:45 PM CLINICAL HISTORY: PREVENTATIVE HEALTH CARE,POSTMENOPAUSAL STATE TECHNIQUE: Dual energy x-ray absorptiometry (DXA) was performed on a [employer] System. Regions measured are the AP Spine, femoral neck, and if needed forearm. COMPARISON: None. In accordance with the International Society for Clinical Densitometry (ISCD) guidelines, data from previous exams may be reanalyzed using current recommendations and techniques. This is done to allow a more accurate basis for comparison with the current study. FINDINGS: The data for the lumbar spine is as follows: BMD (g/cm/cm) T-SCORE Z-SCORE REGION L1 0.974 -1.3 0.7 L2 0.988 -1.8 0.2 L3 1.150 -0.4 1.6 L4 1.259 0.5 2.5 TOTAL 1.089 -0.8 1.2 NOTE: All evaluable vertebrae are used for classification The data for the hip is as follows: BMD (g/cm/cm) T-SCORE Z-SCORE REGION Neck 0.753 -2.0 0.1 TOTAL 0.676 -2.6 -0.6 NOTE: The femoral neck or total proximal femur, whichever is lowest, is used for classification. IMPRESSION: THE WHO CLASSIFICATION BASED ON THE INTERNATIONAL REFERENCE STANDARD IS OSTEOPOROSIS. THE FRACTURE RISK IS HIGH. RECOMMENDATION: Patients with diagnosis of osteoporosis or osteopenia should have regular bone mineral density assessment. For those eligible for Medicare, routine testing is allowed once every 2 years. Testing frequency can be increased for patients who have rapidly progressing disease or for those who are receiving medical therapy to restore bone mass. COMMENT: World Health Organization (WHO) definitions for osteoporosis and osteopenia: NORMAL BMD: T-score at -1.0 or higher, fracture risk is low OSTEOPENIA BMD: T-score between -1.0 and -2.5, fracture risk is increased. OSTEOPOROSIS BMD: T-score at -2.5 or lower, fracture risk is high. National Osteoporosis Foundation recommends: 1. Obtain adequate dietary calcium (at least 1200 mg per day) and vitamin D (400-800 international units per day). 2. Participate, as appropriate, in regular weightbearing and muscle-strengthening exercise. 3. Avoid tobacco use and reduce alcohol and caffeine intake. 4. For more detailed information see the website at www.NOF.org.
== END 2018-09-08 14:12 | disposition home or self-care (01) ==
LOC: DI 14:11
PROVIDERS: ATTEND Physician Assistant Medical
DX: M81.0 Age-related osteoporosis without current pathological fracture (principal); Z78.0 Asymptomatic menopausal state
CPT/HCPCS: 77080

== ENCOUNTER 2018-09-08 14:11 | Outpatient (CLI) | payer MEDICARE, OTHER ==
--- NOTE | 2018-09-09 10:39 | Mammography Report ---
Reason: SCREENING MAMMOGRAM,[facility] Procedure Date: 09/08/2018 Accession Number: [id number] / [id number] Procedure: NORMA - Screening Mammo w/Gallo CPT Code: FULL RESULT: EXAM: Screening Mammo w/Gallo DATE: 09/08/2018 2:56 PM CLINICAL HISTORY: Screening encounter. History of left breast excisional biopsy in 1966 with benign pathology. TECHNIQUE: (B) - Bilateral CC, laterally exaggerated CC, MLO views were obtained. COMPARISON: 07/21/2016 through 07/12/2012. PARENCHYMAL PATTERN: (D) - The breast(s) demonstrate(s) heterogeneously dense fibroglandular parenchyma. FINDINGS: Postsurgical changes in the left breast are stable. There are coarse typically benign bilateral calcifications. There are no suspicious masses, calcifications, or areas of distortion. IMPRESSION: Benign findings. BI-RADS category 2. RECOMMENDATION: (ANNUAL) - Recommend routine annual screening mammography. BI-RADS CATEGORY: (2) - Benign Findings. STANDARD QUALIFYING STATEMENTS: 1. This examination was not reviewed with the aid of Computer-Aided Detection (CAD). 2. A negative or benign imaging report should not preclude biopsy if clinically suspicious findings are present. 3. Dense breasts may obscure an underlying neoplasm. 4. This examination was reviewed with the aid of 3D breast imaging (tomosynthesis).
== END 2018-09-08 14:12 | disposition home or self-care (01) ==
LOC: DI 14:11
PROVIDERS: ATTEND Physician Assistant Medical
DX: Z12.31 Encounter for screening mammogram for malignant neoplasm of breast (principal)
CPT/HCPCS: 77063; 77067

== ENCOUNTER 2019-10-06 08:09 | Outpatient (CLI) | payer MEDICARE, OTHER ==
[2019-10-06 15:28] LABS: BASOPHILS # (AUTO) 0.1 10^3/uL (0.0-0.1); EOSINOPHILS # (AUTO) 0.2 10^3/uL (0.0-0.7); EOSINOPHILS % (AUTO) 2.6 %; HGB - HEMOGLOBIN 14.3 g/dL (12.0-16.0); LYMPHOCYTES # (AUTO) 2.3 10^3/uL (1.5-3.5); LYMPHOCYTES % (AUTO) 37.9 %; MEAN CORPUSCULAR HEMOGLOBIN 28.1 pg (27.0-31.0); MEAN CORPUSCULAR HGB CONC 31.3 g/dL (32.0-36.0); MEAN CORPUSCULAR VOLUME 89.8 fL (81.0-99.0); MEAN PLATELET VOLUME 10.4 fL (7.9-10.8); MONOCYTES # (AUTO) 0.5 10^3/uL (0.0-1.0); MONOCYTES % (AUTO) 7.4 %; NEUTROPHILS # (AUTO) 3.1 10^3/uL (1.5-6.6); NEUTROPHILS % (AUTO) 50.8 %; PLT - PLATELET COUNT 290 10^3/uL (130-450); RED BLOOD COUNT 5.09 10^6/uL (4.20-5.40); RED CELL DISTRIBUTION WIDTH 15.1 % (12.0-15.0); WHITE BLOOD COUNT 6.1 x10^3/uL (4.8-10.8)
[2019-10-06 15:50] LABS: ALBUMIN 4.3 g/dL (3.2-5.5); ALBUMIN/GLOBULIN RATIO 1.5 (1.0-2.2); ALKALINE PHOSPHATASE 55 IU/L (42-121); ALT ALANINE AMINOTRANSFERASE 23 IU/L (10-60); AST ASPARTATE AMINOTRANSFERASE 30 IU/L (10-42); BILIRUBIN,TOTAL 0.9 mg/dL (0.2-1.0); BUN - BLOOD UREA NITROGEN 23 mg/dL (6-20); CALCIUM 9.3 mg/dL (8.5-10.3); CARBON DIOXIDE - CO2 29 mmol/L (21-32); CHLORIDE 105 mmol/L (101-111); CHOL/HDL RATIO 2.5 (<4.4); CHOLESTEROL 223 mg/dL; CREATININE 0.9 mg/dL (0.4-1.0); GLUCOSE 94 mg/dL (70-100); HDL CHOLESTEROL 91 mg/dL; LDL CHOLESTEROL,CALCULATED 117 mg/dL; LDL/HDL RATIO 1.3 (<4.4); SODIUM 140 mmol/L (135-145); TOTAL PROTEIN 7.2 g/dL (6.7-8.2); VLDL CHOLESTEROL 15 mg/dL
== END 2019-10-06 08:10 | disposition home or self-care (01) ==
LOC: LAB.S 08:09
PROVIDERS: ATTEND Registered Nurse
DX: E03.9 Hypothyroidism, unspecified (principal); E78.5 Hyperlipidemia, unspecified
CPT/HCPCS: 36415; 80053; 80061; 83721; 84443; 85025

== ENCOUNTER 2019-11-27 08:00 | Outpatient (CLI) | payer MEDICARE, OTHER | END 2019-11-27 23:59 | disposition home or self-care (01) | LOC: LAB.F 08:00 | PROVIDERS: ATTEND Registered Nurse | DX: R30.0 Dysuria (principal) | CPT/HCPCS: 81002 ==

== ENCOUNTER 2019-11-28 08:00 | Outpatient (CLI) | payer MEDICARE, OTHER | END 2019-11-28 23:59 | disposition home or self-care (01) | LOC: LAB.R 08:00 | PROVIDERS: ATTEND Registered Nurse | DX: R30.0 Dysuria (principal) | CPT/HCPCS: 87086; 87181 ==

== ENCOUNTER 2020-07-25 08:00 | Outpatient (CLI) | payer MEDICARE, OTHER | END 2020-07-25 23:59 | disposition home or self-care (01) | LOC: LAB.S 08:00 | PROVIDERS: ATTEND Physician Assistant | DX: N39.0 Urinary tract infection, site not specified (principal); R30.0 Dysuria | CPT/HCPCS: 87086; 87181 ==

== ENCOUNTER 2020-10-08 08:00 | Outpatient (CLI) | payer MEDICARE, OTHER ==
[2020-10-08 08:33] LABS: BASOPHILS # (AUTO) 0.1 10^3/uL (0.0-0.1); BASOPHILS % (AUTO) 1.1 %; EOSINOPHILS # (AUTO) 0.1 10^3/uL (0.0-0.7); HCT - HEMATOCRIT 44.8 % (37.0-47.0); HGB - HEMOGLOBIN 14.1 g/dL (12.0-16.0); LYMPHOCYTES # (AUTO) 2.4 10^3/uL (1.5-3.5); LYMPHOCYTES % (AUTO) 35.9 %; MEAN CORPUSCULAR HEMOGLOBIN 27.6 pg (27.0-31.0); MEAN CORPUSCULAR HGB CONC 31.5 g/dL (32.0-36.0); MEAN CORPUSCULAR VOLUME 87.7 fL (81.0-99.0); MEAN PLATELET VOLUME 9.9 fL (7.9-10.8); MONOCYTES # (AUTO) 0.5 10^3/uL (0.0-1.0); MONOCYTES % (AUTO) 6.8 %; NEUTROPHILS # (AUTO) 3.6 10^3/uL (1.5-6.6); PLT - PLATELET COUNT 251 10^3/uL (130-450); RED BLOOD COUNT 5.11 10^6/uL (4.20-5.40); RED CELL DISTRIBUTION WIDTH 14.6 % (12.0-15.0); WHITE BLOOD COUNT 6.6 x10^3/uL (4.8-10.8)
[2020-10-08 08:46] LABS: ALBUMIN 4.4 g/dL (3.2-5.5); ALBUMIN/GLOBULIN RATIO 1.6 (1.0-2.2); ALKALINE PHOSPHATASE 57 IU/L (42-121); ALT ALANINE AMINOTRANSFERASE 25 IU/L (10-60); AST ASPARTATE AMINOTRANSFERASE 33 IU/L (10-42); BILIRUBIN,TOTAL 1.2 mg/dL (0.2-1.0); BUN - BLOOD UREA NITROGEN 24 mg/dL (6-20); CALCIUM 9.8 mg/dL (8.5-10.3); CARBON DIOXIDE - CO2 27 mmol/L (21-32); CHLORIDE 104 mmol/L (101-111); CHOL/HDL RATIO 2.6 (<4.4); CHOLESTEROL 220 mg/dL; CREATININE 0.8 mg/dL (0.4-1.0); GFR - MDRD 69 (>89); GLUCOSE 98 mg/dL (70-100); HDL CHOLESTEROL 84 mg/dL; LDL CHOLESTEROL,CALCULATED 127 mg/dL; LDL/HDL RATIO 1.5 (<4.4); POTASSIUM 4.6 mmol/L (3.5-5.0); SODIUM 139 mmol/L (135-145); TOTAL PROTEIN 7.2 g/dL (6.7-8.2); TRIGLYCERIDES 45 mg/dL; VLDL CHOLESTEROL 9 mg/dL
[2020-10-08 08:57] LABS: THYROID STIMULATING HORMONE 1.17 uIU/mL (0.34-5.60)
== END 2020-10-08 08:01 | disposition home or self-care (01) ==
LOC: LAB 08:00
PROVIDERS: ATTEND Registered Nurse
DX: G47.9 Sleep disorder, unspecified (principal); E03.9 Hypothyroidism, unspecified; E78.5 Hyperlipidemia, unspecified
CPT/HCPCS: 36415; 80053; 80061; 83721; 84443; 85025

== ENCOUNTER 2021-02-25 01:05 | Inpatient (IN) | payer MEDICARE, OTHER ==
--- NOTE | 2021-02-25 01:32 | ED Physician Documentation ---
PD HPI ABD PAIN - Stated complaint Stated Complaint: ABD SWELLING - Chief complaint Chief Complaint: Abd Pain - History obtained from History obtained from: Patient - History of Present Illness Timing - onset: Yesterday (approximtely 24 hours [employer] (approximately 2 AM last night)) Timing - details: Abrupt onset, Waxing and waning Pain level max: 6 Pain level now: 3 Quality: Cramping Location: RUQ, Epigastric, LUQ, Other (she indicates discomfort is across upper abdomen, predominantly epigastrium) Radiation: Right shoulder Improved by: Laying still Worsened by: Palpation Associated symptoms: Nausea, Loss of appetite. No: Vomiting, Hematemesis Similar symptoms before: No: No diagnosis Recently seen: Not recently seen Review of Systems Constitutional: denies: Fever Cardiac: reports: Chest pain / pressure (lower chest/upper abdominal pain), Pedal edema, Reviewed and negative. denies: Palpitations Respiratory: reports: Dyspnea GI: reports: Abdominal Pain : denies: Dysuria, Frequency Musculoskeletal: reports: Reviewed and negative Neurologic: reports: Reviewed and negative PD PAST MEDICAL HISTORY - Past Medical History Cardiovascular: None Respiratory: None Endocrine/Autoimmune: HyPOthyroidism GI: Other : None HEENT: Chronic vision loss, Chronic sinusitis, Chronic hearing loss Psych: None Musculoskeletal: Osteoarthritis Derm: Other - Past Surgical History General: Colonoscopy /[employer]: Hysterectomy HEENT: Cataracts, Detached retina repair, Tonsil/Adenoidectomy - Present Medications Home Medications: Ambulatory Orders Medication Instructions Recorded Confirmed Levothyroxine [Synthroid] 112 mcg PO QDAC 09/20/13 02/25/21 Simvastatin [Zocor] 5 mg PO QPM 02/25/21 02/25/21 - Allergies Allergies/Adverse Reactions: Allergies Allergy/AdvReac Type Severity Reaction Status Date / Time milk Allergy Unknown Verified 02/25/21 01:29 - Social History Does the pt smoke?: No Smoking Status: Never smoker Does the pt drink ETOH?: No Does the pt have substance abuse?: No - Immunizations Immunizations are current?: Yes PD ED PE NORMAL - Vitals Vital signs reviewed: Yes - General General: Alert and oriented X 3, No acute distress, Well developed/nourished - Neck Neck: Supple, no meningeal sign - Cardiac Cardiac: RRR, No murmur - Respiratory Respiratory: No respiratory distress, Clear bilaterally - Abdomen Abdomen: Soft, Non distended, Other (moderate TTP bilateral lower quadrants without rebound) - Back Back: No CVA TTP - Derm Derm: Normal color, Warm and dry - Neuro Neuro: Alert and oriented X 3 Results - Vitals Vitals: Vital Signs - 24 hr 02/25/21 02/25/21 02/25/21 09:00 11:00 13:00 Heart Rate 68 73 82 Respiratory 16 19 19 Rate Blood Pressure 123/72 131/77 H 117/70 O2 Saturation 97 96 99 02/25/21 02/25/21 15:00 17:00 Heart Rate 77 81 Respiratory 17 18 Rate Blood Pressure 133/85 H 149/76 H O2 Saturation 94 98 Oxygen O2 Source Room air - Labs Labs: Laboratory Tests 02/25/21 02/25/21 02/25/21 01:25 01:25 02:55 WBC 15.5 H RBC 5.61 H Hgb 15.8 Hct 48.7 H MCV 86.8 MCH 28.2 MCHC 32.4 RDW 14.6 Plt Count 337 MPV 10.4 Neut # (Auto) 11.7 H Lymph # (Auto) 2.6 Glenn # (Auto) 0.8 Eos # (Auto) 0.2 Baso # (Auto) 0.1 Absolute Nucleated RBC 0.00 Nucleated RBC % 0.0 PT INR Sodium 138 Potassium 3.6 Chloride 97 L Carbon Dioxide 29 Anion Gap 12.0 BUN 22 H Creatinine 0.9 Estimated GFR (MDRD) 60 L Glucose 129 H Calcium 10.8 H Total Bilirubin 0.7 AST 29 ALT 21 Alkaline Phosphatase 64 Total Protein 8.4 H Albumin 5.0 Globulin 3.4 Albumin/Globulin Ratio 1.5 Lipase 31 TSH Urine Color YELLOW Urine Clarity CLEAR Urine pH 7.5 Ur Specific [place] 1.010 Urine Protein NEGATIVE Urine Glucose (UA) NEGATIVE Urine Ketones NEGATIVE Urine Occult Blood TRACE-INTA Urine Nitrite NEGATIVE Urine Bilirubin NEGATIVE Urine Urobilinogen 0.2 (NORMAL) Ur Leukocyte Esterase TRACE H Urine RBC 0-5 Urine WBC 4-5 Ur Squamous Epith Cells NONE SEEN Urine Bacteria Rare Ur Microscopic Review INDICATED Urine Culture Comments INDICATED Nasal Adenovirus (PCR) Nasal B. parapertussis DNA (PCR) Nasal Coronavir 229E PCR Nasal Coronavir HKU1 PCR Nasal Coronavir NL63 PCR Nasal Coronavir OC43 PCR Nasal Enterovir/Rhinovir PCR Nasal Influenza B PCR Nasal Influenza A PCR Nasal Parainfluen 1 PCR Nasal Parainfluen 2 PCR Nasal Parainfluen 3 PCR Nasal Parainfluen 4 PCR Nasal RSV (PCR) Nasal B.pertussis DNA PCR Nasal C.pneumoniae (PCR) Faraz Human Metapneumo PCR Nasal M.pneumoniae (PCR) Nasal SARS-CoV-2 (PCR) 02/25/21 02/25/21 02/25/21 06:00 17:13 17:13 WBC RBC Hgb Hct MCV MCH MCHC RDW Plt Count MPV Neut # (Auto) Lymph # (Auto) Glenn # (Auto) Eos # (Auto) Baso # (Auto) Absolute Nucleated RBC Nucleated RBC % PT 12.0 INR 1.1 Sodium Potassium Chloride Carbon Dioxide Anion Gap BUN Creatinine Estimated GFR (MDRD) Glucose Calcium Total Bilirubin AST ALT Alkaline Phosphatase Total Protein Albumin Globulin Albumin/Globulin Ratio Lipase TSH 2.69 Urine Color Urine Clarity Urine pH Ur Specific [place] Urine Protein Urine Glucose (UA) Urine Ketones Urine Occult Blood Urine Nitrite Urine Bilirubin Urine Urobilinogen Ur Leukocyte Esterase Urine RBC Urine WBC Ur Squamous Epith Cells Urine Bacteria Ur Microscopic Review Urine Culture Comments Nasal Adenovirus (PCR) NOT DETECTED Nasal B. parapertussis DNA (PCR) NOT DETECTED Nasal Coronavir 229E PCR NOT DETECTED Nasal Coronavir HKU1 PCR NOT DETECTED Nasal Coronavir NL63 PCR NOT DETECTED Nasal Coronavir OC43 PCR NOT DETECTED Nasal Enterovir/Rhinovir PCR NOT DETECTED Nasal Influenza B PCR NOT DETECTED Nasal Influenza A PCR NOT DETECTED Nasal Parainfluen 1 PCR NOT DETECTED Nasal Parainfluen 2 PCR NOT DETECTED Nasal Parainfluen 3 PCR NOT DETECTED Nasal Parainfluen 4 PCR NOT DETECTED Nasal RSV (PCR) NOT DETECTED Nasal B.pertussis DNA PCR NOT DETECTED Nasal C.pneumoniae (PCR) NOT DETECTED Faraz Human Metapneumo PCR NOT DETECTED Nasal M.pneumoniae (PCR) NOT DETECTED Nasal SARS-CoV-2 (PCR) NOT DETECTED - Rads (name of study) CT A/P Radiology: Prelim report reviewed, See rad report PD MEDICAL DECISION MAKING - ED course Complexity details: reviewed results, re-evaluated patient, considered differential, d/w patient ED course: CT findings most consistent with sbo. Patient took some convincing that this was the diagnosis. She frequently would point to her epigastrium and say her pain was all the way up here, indicating she felt this was far from where her small intestines are. I point out that her tenderness is all across her lower abdomen and, more importantly, the CT scan is highly consistent with small bowel obstruction with some findings suggesting etiology could include adhesion(s) or internal hernia. Patient was reluctant to completely believe the diagnosis but eventually relented and was agreeable to transfer to closest appropriate facility, realizing this facility might be dozens of miles away due to extreme lack of bed availability. [place], [facility], [place], [facility], [facility], [place], [facility], [facility] have no beds available. At that point, [facility] called appropriate hospitals down the 5 corridor without success in finding an available bed. Case signed out to Dr. Diamond at end of my shift pending disposition Departure - Departure Disposition: [address] [facility] DC/[place] Clinical Impression: Small bowel obstruction Discharge Date/Time: 02/25/21 18:50
[2021-02-25 01:38] LABS: BASOPHILS # (AUTO) 0.1 10^3/uL (0.0-0.1); BASOPHILS % (AUTO) 0.5 %; EOSINOPHILS # (AUTO) 0.2 10^3/uL (0.0-0.7); EOSINOPHILS % (AUTO) 1.2 %; HCT - HEMATOCRIT 48.7 % (37.0-47.0); HGB - HEMOGLOBIN 15.8 g/dL (12.0-16.0); LYMPHOCYTES # (AUTO) 2.6 10^3/uL (1.5-3.5); MEAN CORPUSCULAR HEMOGLOBIN 28.2 pg (27.0-31.0); MEAN CORPUSCULAR HGB CONC 32.4 g/dL (32.0-36.0); MEAN CORPUSCULAR VOLUME 86.8 fL (81.0-99.0); MEAN PLATELET VOLUME 10.4 fL (7.9-10.8); MONOCYTES # (AUTO) 0.8 10^3/uL (0.0-1.0); NEUTROPHILS # (AUTO) 11.7 10^3/uL (1.5-6.6); NEUTROPHILS % (AUTO) 75.9 %; PLT - PLATELET COUNT 337 10^3/uL (130-450); RED BLOOD COUNT 5.61 10^6/uL (4.20-5.40); RED CELL DISTRIBUTION WIDTH 14.6 % (12.0-15.0); WHITE BLOOD COUNT 15.5 x10^3/uL (4.8-10.8)
[2021-02-25 01:48] LABS: ALBUMIN/GLOBULIN RATIO 1.5 (1.0-2.2); BILIRUBIN,TOTAL 0.7 mg/dL (0.2-1.0); CALCIUM 10.8 mg/dL (8.5-10.3); CREATININE 0.9 mg/dL (0.4-1.0); POTASSIUM 3.6 mmol/L (3.5-5.0); TOTAL PROTEIN 8.4 g/dL (6.7-8.2)
[2021-02-25] MEDS ORDERED: SODIUM CHLORIDE 0.9% 500 ML IV STA (02:01)
[2021-02-25] MEDS ORDERED: IOPAMIDOL-300 100 ML VIAL ONE (02:02)
[2021-02-25] MEDS ORDERED: IOPAMIDOL-300 100 ML VIAL IVP ONE (02:29)
[2021-02-25 03:16] LABS: BILIRUBIN,URINE NEGATIVE (NEGATIVE); GLUCOSE, URINE (UA) NEGATIVE (NEGATIVE); KETONES,URINE (UA) NEGATIVE (NEGATIVE); LEUKOCYTE ESTERASE, URINE TRACE (NEGATIVE); NITRITE,URINE NEGATIVE (NEGATIVE); OCCULT BLOOD,URINE TRACE-INTA (NEGATIVE); PH,URINE 7.5 PH (5.0-7.5); PROTEIN,URINE NEGATIVE (NEGATIVE); UROBILINOGEN,URINE 0.2 (NORMAL) E.U./dL (NORMAL)
[2021-02-25 03:17] LABS: CLARITY,URINE CLEAR (CLEAR)
[2021-02-25 03:21] LABS: BACTERIA,URINE Rare /HPF (None Seen); RBC,URINE 0-5 /HPF (0-5); SQUAMOUS EPITHELIAL CELL,UR NONE SEEN (<= Few)
[2021-02-25] MEDS ORDERED: KETOROLAC 30 MG/ML VIAL IVP STA (04:20)
[2021-02-25] MEDS ORDERED: SODIUM CHLORIDE 0.9% 1,000 ML IV STA ×2 (04:25→14:38)
[2021-02-25 07:01] LABS: B. PARAPERTUSSIS- RESP PCR PAN NOT DETECTED; B. PERTUSSIS- RESP PCR PANEL NOT DETECTED; C. PNEUMONIAE- RESP PCR PANEL NOT DETECTED; CORONAVIRUS 229E-RESP PCR NOT DETECTED; CORONAVIRUS HKU1-RESP PCR NOT DETECTED; CORONAVIRUS NL63-RESP PCR NOT DETECTED; CORONAVIRUS OC43-RESP PCR NOT DETECTED; HUMAN METAPNEUMOVIRUS NOT DETECTED; INFLUENZA A- RESP PCR PANEL NOT DETECTED; INFLUENZA B - RESP PCR PANEL NOT DETECTED; M. PNEUMONIAE- RESP PCR PANEL NOT DETECTED; PARAINFLUENZA VIRUS 1 NOT DETECTED; PARAINFLUENZA VIRUS 2 NOT DETECTED; PARAINFLUENZA VIRUS 3 NOT DETECTED; PARAINFLUENZA VIRUS 4 NOT DETECTED; RHINOVIRUS/ENTEROVIRUS NOT DETECTED; RSV- RESP PCR PANEL NOT DETECTED; SARS-CoV-2 -RESP PCR PANEL NOT DETECTED
--- NOTE | 2021-02-25 08:33 | CT Report ---
PROCEDURE: Abdomen/Pelvis W INDICATIONS: abdominal pain, across lower abdomen CONTRAST: IV CONTRAST: Isovue 300 ml: 100 PO CONTRAST: *NO PO CONTRAST TECHNIQUE: After the administration of intravenous contrast, 5 mm thick sections acquired from the diaphragms to the symphysis. 5 mm thick coronal and sagittal reformats were acquired. For radiation dose reducti on, the following was used: automated exposure control, adjustment of mA and/or kV according to carmen ent size. COMPARISON: CT Pelvis without contrast, 04/15/2019. FINDINGS: Image quality: Excellent. ABDOMEN: Lung bases: Lung bases are clear. Heart size is normal. Solid organs: Liver and spleen are normal in size and enhancement. Gallbladder is normal. Biliary system is non dilated. Pancreas enhances normally. No adrenal nodules. Kidneys demonstrate normal size and enhancement, without hydronephrosis. Peritoneum and bowel: Stomach is moderately distended with an air-fluid level. There is thickening of gastric antrum and gastroduodenal junction. Small bowel loops are distended with multiple air-fluid levels measuring up to 3.8 cm in diameter. There is transitional point in lower abdomen likely. The C T findings are consistent with small bowel obstruction. No free fluid or air. Nodes and vessels: No retroperitoneal or mesenteric adenopathy by size criteria. Aorta and inferior vena cava are normal in size. Miscellaneous: Small fat-containing interval ventral hernia. PELVIS: Genitourinary: Bladder wall thickness is normal. Miscellaneous: No inguinal hernias or adenopathy. Bones: No suspicious bony lesions. Mild scoliosis No vertebral body compression fractures. Under t o severe degenerative changes in lumbar spine. Degenerative joint disease in hips and sacroiliac join ts bilaterally. IMPRESSION: 1. Small bowel loops are distended with multiple air-fluid levels measuring up to 3.8 cm in diameter. There is transitional point in the lower abdomen. The CT findings are consistent with small bowel ob struction. Cannot rule out closed loop obstruction. 2. There is thickening of gastric antrum and gastroduodenal junction. No significant discrepancy with the preliminary interpretation. Please note gastric antral thickening was not mentioned on the pulmonary report. Reviewed by: Mayito Lewis MD on 02/25/2021 8:31 AM PST Approved by: Mayito Lewis MD on 02/25/2021 8:31 AM PST Station ID: [id number]
--- NOTE | 2021-02-25 11:33 | ED Physician Documentation ---
ED Addendum - Addendum Addendum: 02/25/21 11:32 80-year-old female who is never had an issue with bowel obstruction before is now developed a small bowel obstruction. She states that she think she may have eaten more to dose the day prior to the onset of her symptoms and that her symptoms started about 2:00 in the morning. She is coming to the emergency department she has been evaluated by Dr. Ontiveros and she has been found to have a small bowel obstruction on her CT scan. There are no beds available currently f or the patient in any of the hospitals and we are awaiting discharge here for a bed to become available. An NG tube was placed to low intermittent suction. Her stomach is full on CT scan. 02/25/21 14:12 Surgery was consulted in the case for appropriateness for our hospital and will review the case.
--- NOTE | 2021-02-25 12:54 | XRAY Report ---
PROCEDURE: Chest for Line Placement INDICATIONS: Confirmation of NG tube placement TECHNIQUE: One view of the chest was acquired. COMPARISON: None FINDINGS: Surgical changes and devices: Enteric tube terminates in the stomach. IMPRESSION: Enteric tube terminates in the stomach. Reviewed by: Umesh Amaya MD on 02/25/2021 12:53 PM PST Approved by: Umesh Amaya MD on 02/25/2021 12:53 PM PST Station ID: [id number]
[2021-02-25] MEDS ORDERED: ONDANSETRON 4 MG/2 ML VIAL IVP STA (14:38)
[2021-02-25] MEDS ORDERED: oxyCODONE 5 MG TABLET PO PRN (16:43)
[2021-02-25] MEDS ORDERED: MORPHINE 2 MG/ML CARPUJECT IVP PRN (16:43)
[2021-02-25] MEDS ORDERED: ONDANSETRON 4 MG/2 ML VIAL IVP PRN (16:43)
[2021-02-25] MEDS ORDERED: ACETAMINOPHEN 325 MG TABLET PO PRN (16:43)
[2021-02-25] MEDS ORDERED: SODIUM CHLORIDE FLUSH 0.9% 10 ML SYRINGE IVP PRN (16:43)
[2021-02-25] MEDS ORDERED: SODIUM CHLORIDE 0.9% 1,000 ML IV SCH (17:00)
[2021-02-25] MEDS ORDERED: SODIUM CHLORIDE FLUSH 0.9% 10 ML SYRINGE IVP SCH (17:00)
[2021-02-25] MEDS ORDERED: ONDANSETRON ODT 4 MG TABLET TL PRN (17:18)
[2021-02-25] MEDS ORDERED: PROCHLORPERAZINE 10 MG/2 ML VIAL IVP PRN (17:18)
[2021-02-25] MEDS ORDERED: MAG HYDROX/AL HYDROX/SIMETH 30 ML UDC PO PRN (17:25)
--- NOTE | 2021-02-25 17:30 | HISTORY & PHYSICAL EXAMINATION ---
Chief Complaint - Chief Complaint Chief Complaint: abdominal pain acute onset yesterday History of Present Illness - Admitted From Admitted From:: ed - History Obtained From Records Reviewed: yes History obtained from: pt Exam Limitations: none - History of Present Illness HPI Comment/Other: acute onset abdominal pain yesterday. had ngt placed and is not feeling much better. less distended and nearly pain free. no past similar symptoms. history c section. ct scan small bowel obstruction. History - Past Medical History Cardiovascular: reports: None Respiratory: reports: None Endocrine/Autoimmune: reports: HyPOthyroidism GI: reports: Other : reports: None HEENT: reports: Chronic vision loss, Chronic sinusitis, Chronic hearing loss Psych: reports: None Musculoskeletal: reports: Osteoarthritis Derm: reports: Other MRSA Hx?: No - Past Surgical History General: reports: Colonoscopy /[employer]: reports: Hysterectomy HEENT: reports: Cataracts, Detached retina repair, Tonsil/Adenoidectomy Meds/Allgy - Home Medications Home Medications: Ambulatory Orders Medication Instructions Recorded Confirmed Levothyroxine [Synthroid] 112 mcg PO QDAC 09/20/13 02/25/21 Simvastatin [Zocor] 5 mg PO QPM 02/25/21 02/25/21 - Allergies Allergies/Adverse Reactions: Allergies Allergy/AdvReac Type Severity Reaction Status Date / Time milk Allergy Unknown Verified 02/25/21 01:29 Exam - Vital Signs Reviewed Vital Signs: Yes Vital Signs: Vital Signs x48h Pulse Resp BP Pulse Ox 02/25/21 17:00 81 18 149/76 H 98 02/25/21 15:00 77 17 133/85 H 94 02/25/21 13:00 82 19 117/70 99 02/25/21 11:00 73 19 131/77 H 96 - Physical Exam General Appearance: positive: No acute distress, Alert Eyes Bilateral: positive: PERRL ENT: positive: No signs of dehydration Neck: positive: No JVD Respiratory: positive: No respiratory distress, Breath sounds nml Cardiovascular: positive: Regular rate & rhythm Abdomen: positive: Other (minimal to no tenderness at this time mild distension much improved per patient) Neurologic/Psychiatric: positive: Oriented x3 Conclusion/Plan - Problem List (1) Small bowel obstruction Conclusion/Plan: she describes having very significant distension and pain. she is much improved with minimal distension and nearly no pain and tenderness. plan continue present care with ngt close observation. - Lab Results Fish Bones: 02/25/21 01:25 02/25/21 01:25
[2021-02-25 17:51] LABS: INR 1.1 (0.8-1.2)
--- NOTE | 2021-02-25 18:01 | ANESTHESIA POST OP EVALUATION ---
Anesthesia Post Eval - Post Anesthesia Eval Vitals: Last Vital Signs Temp 36.7 C 02/25/21 05:56 Pulse 81 02/25/21 17:00 Resp 18 02/25/21 17:00 BP 149/76 H 02/25/21 17:00 Pulse Ox 98 02/25/21 17:00 CV Function Including HR & BP: Stable Pain Control: Satisfactory Nausea & Vomiting: Negative Mental Status: Patient Participates Respiratory Status: Airway Patent Hydration Status: Satisfactory Anesthesia Complications: None
[2021-02-25] MEDS: LEVOTHYROXINE 112 MCG TABLET PO SCH (18:26)
[2021-02-25] MEDS: D5.45NS W/20 MEQ KCL 1,000 ML IV SCH (19:01)
[2021-02-25] MEDS: SODIUM CHLORIDE FLUSH 0.9% 10 ML SYRINGE IVP PRN ×2 (19:06→20:29)
--- NOTE | 2021-02-25 19:39 | ED Physician Documentation ---
ED Addendum - Addendum Addendum: 02/25/21 19:37 EKG obtained at 14:29 : Sinus rhythm rate of 80 normal axes and intervals no evidence of ischemia there is some evidence of low voltage in the precordial leads. [facility] 02-25-2021 01:17 the baseline artifact has resolved. 02/25/21 19:38
[2021-02-25] MEDS: ONDANSETRON 4 MG/2 ML VIAL IVP PRN (19:49)
[2021-02-25] MEDS: PRAVASTATIN 10 MG TABLET PO SCH (20:07)
[2021-02-25] MEDS: FAMOTIDINE 20 MG TABLET PO SCH ×2 (20:07→20:10)
[2021-02-25] MEDS: HYDROmorphone 0.5 MG/0.5 ML SYRINGE IVP PRN (20:29)
[2021-02-26] MEDS: SODIUM CHLORIDE FLUSH 0.9% 10 ML SYRINGE IVP SCH ×4 (01:47→23:37)
[2021-02-26] MEDS: D5.45NS W/20 MEQ KCL 1,000 ML IV SCH ×3 (02:49→23:36)
[2021-02-26] MEDS: HYDROmorphone 0.5 MG/0.5 ML SYRINGE IVP PRN ×2 (02:51→23:42)
[2021-02-26] MEDS: ONDANSETRON 4 MG/2 ML VIAL IVP PRN (06:14)
[2021-02-26] MEDS: LEVOTHYROXINE 112 MCG TABLET PO SCH (06:14)
[2021-02-26 06:25] LABS: HCT - HEMATOCRIT 44.3 % (37.0-47.0); HGB - HEMOGLOBIN 14.3 g/dL (12.0-16.0); MEAN CORPUSCULAR HEMOGLOBIN 28.2 pg (27.0-31.0); MEAN CORPUSCULAR HGB CONC 32.3 g/dL (32.0-36.0); MEAN CORPUSCULAR VOLUME 87.4 fL (81.0-99.0); RED BLOOD COUNT 5.07 10^6/uL (4.20-5.40); RED CELL DISTRIBUTION WIDTH 14.7 % (12.0-15.0); WHITE BLOOD COUNT 8.4 x10^3/uL (4.8-10.8)
[2021-02-26 06:35] LABS: CALCIUM 9.1 mg/dL (8.5-10.3); CREATININE 0.8 mg/dL (0.4-1.0); POTASSIUM 4.3 mmol/L (3.5-5.0)
--- NOTE | 2021-02-26 08:04 | PROVIDER PROGRESS NOTE ---
Subjective - Prog Note Date Prog Note Date: 02/26/21 Prog Note Time: 08:02 - Subjective Pt reports feeling: Improved Subjective: 80yo woman admitted with SBO Objective - Vital Signs/Intake & Output Reviewed Vital Signs: Yes Vital Signs: Vital Signs x48h Temp Pulse Resp BP Pulse Ox 02/26/21 06:08 37.5 C 81 16 122/59 L 96 02/26/21 00:14 36.7 C 81 18 132/67 H 96 Intake & Output: Intake & Output 02/23/21 02/24/21 02/25/21 02/26/21 23:59 23:59 23:59 23:59 Intake Total 2520 995 Output Total 500 200 Balance 2020 795 - Objective General Appearance: positive: No acute distress Eyes Bilateral: positive: Normal inspection Abdomen: positive: Other (Soft, moderately distended, mildly tender. Lower pfannenstiel scar.) Rectal: positive: Stool - heme NEG - Lab Results Fish Bones: 02/26/21 06:10 02/26/21 06:10 Other Labs: Lab Results x24hrs 02/26/21 02/26/21 02/25/21 Range/Units 06:10 06:10 17:13 WBC 8.4 (4.8-10.8) x10^3/uL RBC 5.07 (4.20-5.40) 10^6/uL Hgb 14.3 (12.0-16.0) g/dL Hct 44.3 (37.0-47.0) % MCV 87.4 (81.0-99.0) fL MCH 28.2 (27.0-31.0) pg MCHC 32.3 (32.0-36.0) g/dL RDW 14.7 (12.0-15.0) % Plt Count 275 (130-450) 10^3/uL MPV 10.0 (7.9-10.8) fL PT 12.0 (9.9-12.6) secs INR 1.1 (0.8-1.2) Sodium 137 (135-145) mmol/L Potassium 4.3 (3.5-5.0) mmol/L Chloride 103 (101-111) mmol/L Carbon Dioxide 25 (21-32) mmol/L Anion Gap 9.0 (6-13) BUN 24 H (6-20) mg/dL Creatinine 0.8 (0.4-1.0) mg/dL Estimated GFR (MDRD) 69 L (>89) Glucose 147 H (70-100) mg/dL Calcium 9.1 (8.5-10.3) mg/dL TSH (0.34-5.60) uIU/mL // Range/Units 17:13 WBC (4.8-10.8) x10^3/uL RBC (4.20-5.40) 10^6/uL Hgb (12.0-16.0) g/dL Hct (37.0-47.0) % MCV (81.0-99.0) fL MCH (27.0-31.0) pg MCHC (32.0-36.0) g/dL RDW (12.0-15.0) % Plt Count (130-450) 10^3/uL MPV (7.9-10.8) fL PT (9.9-12.6) secs INR (0.8-1.2) Sodium (135-145) mmol/L Potassium (3.5-5.0) mmol/L Chloride (101-111) mmol/L Carbon Dioxide (21-32) mmol/L Anion Gap (6-13) BUN (6-20) mg/dL Creatinine (0.4-1.0) mg/dL Estimated GFR (MDRD) (>89) Glucose (70-100) mg/dL Calcium (8.5-10.3) mg/dL TSH 2.69 (0.34-5.60) uIU/mL Assessment/Plan - Problem List (1) Small bowel obstruction Impression: Stable, non-peritonitic exam. WBC downtrending. Will continue NG tube decompression Ambulation encouraged Serial exams Amish Horton MD General Surgery
[2021-02-26] MEDS ORDERED: ENOXAPARIN 40 MG/0.4 ML SYRINGE SUBQ SCH (09:00)
[2021-02-26] MEDS: FAMOTIDINE 20 MG TABLET PO SCH ×2 (09:39→20:03)
[2021-02-26] MEDS ORDERED: SODIUM CHLORIDE 0.9% 1,000 ML IV ONE (10:55)
[2021-02-26] MEDS: ACETAMINOPHEN 325 MG TABLET PO PRN (14:40)
[2021-02-26] MEDS: PRAVASTATIN 10 MG TABLET PO SCH (20:03)
[2021-02-27] MEDS: LEVOTHYROXINE 112 MCG TABLET PO SCH (05:52)
[2021-02-27] MEDS: SODIUM CHLORIDE FLUSH 0.9% 10 ML SYRINGE IVP SCH ×3 (08:26→23:54)
[2021-02-27] MEDS: D5.45NS W/20 MEQ KCL 1,000 ML IV SCH ×4 (08:26→23:54)
[2021-02-27] MEDS: FAMOTIDINE 20 MG TABLET PO SCH ×2 (08:26→20:36)
--- NOTE | 2021-02-27 10:33 | PROVIDER PROGRESS NOTE ---
Subjective - Prog Note Date Prog Note Date: 02/27/21 - Subjective Pt reports feeling: No change (minimal to no pain, no flatus, no nausea) Objective - Vital Signs/Intake & Output Reviewed Vital Signs: Yes Vital Signs: Vital Signs x48h Temp Pulse Resp BP Pulse Ox 02/27/21 08:22 37.5 C 74 20 127/59 L 96 02/27/21 04:20 36.8 C 74 18 139/72 H 96 Intake & Output: Intake & Output 02/24/21 02/25/21 02/26/21 02/27/21 23:59 23:59 23:59 23:59 Intake Total 2520 4054.167 1020 Output Total 500 1200 1100 Balance 2019 2854.167 -80 - Objective General Appearance: positive: No acute distress, Alert Eyes Bilateral: positive: PERRL, EOMI ENT: positive: No signs of dehydration Neck: positive: No JVD Respiratory: positive: No respiratory distress Abdomen: positive: Non-tender, No distention Neurologic/Psychiatric: positive: Oriented x3 - Lab Results Fish Bones: 02/26/21 06:10 02/26/21 06:10 Assessment/Plan - Problem List (1) Small bowel obstruction Impression: She has minimal to no pain and distension; however, she does not seem to be improving. Ngt output green/ thin indications for surgery again discussed. if she is not improving by tomorrow, consider exploratory laparotomy tomorrow with possible bowel resection. Prior surgery includes pelvic floor reconstruction with mesh. continue present care for today.
[2021-02-27] MEDS: ACETAMINOPHEN 325 MG TABLET PO PRN (14:06)
[2021-02-27] MEDS: PRAVASTATIN 10 MG TABLET PO SCH (20:36)
[2021-02-28 06:47] LABS: CALCIUM 8.9 mg/dL (8.5-10.3); CREATININE 0.7 mg/dL (0.4-1.0); POTASSIUM 3.8 mmol/L (3.5-5.0)
[2021-02-28] MEDS: LEVOTHYROXINE 112 MCG TABLET PO SCH (07:28)
[2021-02-28] MEDS: D5.45NS W/20 MEQ KCL 1,000 ML IV SCH ×2 (07:29→18:24)
[2021-02-28] MEDS: FAMOTIDINE 20 MG TABLET PO SCH ×2 (10:42→22:24)
[2021-02-28] MEDS: SODIUM CHLORIDE FLUSH 0.9% 10 ML SYRINGE IVP SCH ×2 (10:43→18:24)
[2021-02-28] MEDS ORDERED: BUPIVACAINE 0.5% PF 10 ML VIAL ONE ×3 (14:50→15:45)
[2021-02-28] MEDS ORDERED: LIDOCAINE MPF 2%-EPI 1:200000 20 ML VIAL ONE (14:50)
[2021-02-28] MEDS ORDERED: ePHEDrine 50 MG/ML VIAL IVP PRN (14:52)
[2021-02-28] MEDS ORDERED: MORPHINE 2 MG/ML CARPUJECT IVP PRN (14:52)
[2021-02-28] MEDS ORDERED: METOCLOPRAMIDE 10 MG/2 ML VIAL IVP PRN (14:52)
[2021-02-28] MEDS ORDERED: HYDROmorphone 0.5 MG/0.5 ML SYRINGE IVP PRN (14:52)
[2021-02-28] MEDS ORDERED: ONDANSETRON 4 MG/2 ML VIAL IVP PRN (14:52)
[2021-02-28] MEDS ORDERED: fentaNYL 100 MCG/2 ML VIAL IVP PRN (14:52)
[2021-02-28] MEDS ORDERED: NALOXONE 0.4 MG/ML VIAL IVP PRN (14:52)
[2021-02-28] MEDS ORDERED: ATROPINE ABBOJECT 1 MG/10 ML SYRINGE IVP PRN (14:52)
--- NOTE | 2021-02-28 14:52 | ANESTHESIA ---
Pre-Anesthesia VS, & Labs - Diagnosis SBO, abdominal pain - Procedure exploratory laparotomy Vital Signs: Temp Pulse Resp BP Pulse Ox 37.3 C 76 18 142/77 H 96 02/28/21 08:00 02/28/21 08:00 02/28/21 08:00 02/28/21 08:00 02/28/21 08:00 Height: 5 ft 5 in Weight (kg): 61.5 kg Body Mass Index: 22.5 BMI Classification: Healthy weight - NPO >8 hours - Is Patient ?: No - Lab Results Current Lab Results: Laboratory Tests 02/28/21 06:33: Sodium 134 L, Potassium 3.8, Chloride 99 L, Carbon Dioxide 28, Anion Gap 7.0, BUN 9, Creatinine 0.7, Estimated GFR (MDRD) 81 L, Glucose 120 H, Calcium 8.9 02/26/21 06:10: Sodium 137, Potassium 4.3, Chloride 103, Carbon Dioxide 25, Anion Gap 9.0, BUN 24 H, Creatinine 0.8, Estimated GFR (MDRD) 69 L, Glucose 147 H, Calcium 9.1 02/26/21 06:10: WBC 8.4, RBC 5.07, Hgb 14.3, Hct 44.3, MCV 87.4, MCH 28.2, MCHC 32.3, RDW 14.7, Plt Count 275, MPV 10.0 02/25/21 17:13: PT 12.0, INR 1.1 02/25/21 17:13: TSH 2.69 02/25/21 01:25: Sodium 138, Potassium 3.6, Chloride 97 L, Carbon Dioxide 29, Anion Gap 12.0, BUN 22 H, Creatinine 0.9, Estimated GFR (MDRD) 60 L, Glucose 129 H, Calcium 10.8 H, Total Bilirubin 0.7, AST 29, ALT 21, Alkaline Phosphatase 64, Total Protein 8.4 H, Albumin 5.0, Globulin 3.4, Albumin/Globulin Ratio 1.5, L ipase 31 02/25/21 01:25: WBC 15.5 H, RBC 5.61 H, Hgb 15.8, Hct 48.7 H, MCV 86.8, MCH 28.2, MCHC 32.4, RDW 14.6, Plt Count 337, MPV 10.4, Neut # (Auto) 11.7 H, Lymph # (Auto) 2.6, Baca # (Auto) 0.8, Eos # (Auto) 0.2, Baso # (Auto) 0.1, Absolute Nucleated RBC 0.00, Nucleated RBC % 0.0 Lab results reviewed: Yes Fish Bones: 02/26/21 06:10 02/28/21 06:33 Home Medications and Allergies Home Medications: Ambulatory Orders Simvastatin [Zocor] 5 mg PO QPM 02/25/21 Active Medications Acetaminophen (Acetaminophen 325 Mg Tablet) 650 mg PO Q4HR PRN PRN Reason: Pain 1 to 4 Last Admin: 02/27/21 14:06 Dose: 650 mg Documented by: Al Hydroxide/Mg Hydroxide (Mag Hydrox/Al Hydrox/Simeth 30 Ml Udc) 30 ml PO Q6HR PRN PRN Reason: Heartburn Famotidine (Famotidine 20 Mg Tablet) 20 mg PO BID [facility] Last Admin: 02/28/21 10:42 Dose: 20 mg Documented by: Hydromorphone HCl (Hydromorphone 0.5 Mg/0.5 Ml Syringe) 0.5 mg IVP Q2H PRN PRN Reason: Pain 8 to 10 Last Admin: 02/26/21 23:42 Dose: 0.5 mg Documented by: Potassium Chloride/Dextrose/Sod Cl (D5.45ns W/20 Meq Kcl) 1,000 mls @ 125 mls/hr IV .Q8H [facility] Last Admin: 02/28/21 07:29 Dose: 125 mls/hr Documented by: Levothyroxine Sodium (Levothyroxine 112 Mcg Tablet) 112 mcg PO QDAC [facility] Last Admin: 02/28/21 07:28 Dose: 112 mcg Documented by: Ondansetron HCl (Ondansetron Odt 4 Mg Tablet) 4 mg TL Q6HR PRN PRN Reason: Nausea / Vomiting Ondansetron HCl (Ondansetron 4 Mg/2 Ml Vial) 4 mg IVP Q6HR PRN PRN Reason: Nausea / Vomiting Last Admin: 02/26/21 06:14 Dose: 4 mg Documented by: Pravastatin Sodium (Pravastatin 10 Mg Tablet) 10 mg PO QPM [facility] Last Admin: 02/27/21 20:36 Dose: 10 mg Documented by: Prochlorperazine Edisylate (Prochlorperazine 10 Mg/2 Ml Vial) 10 mg IVP Q6HR PRN PRN Reason: Nausea / Vomiting Sodium Chloride (Sodium Chloride Flush 0.9% 10 Ml Syringe) 10 ml IVP PRN PRN PRN Reason: NEEDED PER PROVIDER ORDERS Last Admin: 02/25/21 20:29 Dose: 10 ml Documented by: Sodium Chloride (Sodium Chloride Flush 0.9% 10 Ml Syringe) 10 ml IVP 0100,0900,1700 [facility] Last Admin: 02/28/21 10:43 Dose: 10 ml Documented by: Levothyroxine [Synthroid] 112 mcg PO QDAC 09/20/13 Simvastatin [Zocor] 5 mg PO QPM 02/25/21 Allergies/Adverse Reactions: Allergies Allergy/AdvReac Type Severity Reaction Status Date / Time milk Allergy Unknown Verified 02/25/21 01:29 Anes History & Medical History - Anesthetic History Anesthesia Complications: reports: No previous complications, Slow wake-up Family history of Anesthesia Complications: Denies Family history of Malignant Hyperthermia: Denies - Medical History Cardiovascular: reports: None Pulmonary: reports: None Gastrointestinal: reports: Other (NGT a L nares) Urinary: reports: None Musculoskeletal: reports: Osteoarthritis Endocrine/Autoimmune: reports: HyPOthyroidism Skin: reports: Other Smoking Status: Never smoker - Surgical History General: reports: Colonoscopy Eyes Ears Nose Throat (EENT): reports: Cataracts, Detached retina repair, Tonsil/Adenoidectomy Gynecologic: reports: Hysterectomy, Other Exam General: Alert, Oriented x3, Cooperative Dental: WNL Mouth Openin Fingerbreadth Neck Mobility: Normal Mallampati classification: III Thyromental Distance: 4-6 cm Respiratory: Lungs clear, Normal breath sounds, No respiratory distress Cardiovascular: Regular rate Neurological: Normal speech Mental/Cognitive Status: Alert/Oriented X3, Normal for patient Cognitive Status: Within normal limits Plan Anesthesia Type: General Consent for Procedure(s) Verified and Reviewed: Yes Code Status: Attempt Resuscitation ASA classification: 2-Mild systemic disease Is this case an emergency?: No
[2021-02-28] MEDS ORDERED: LACTATED RINGERS 1,000 ML IV SCH (15:00)
[2021-02-28] MEDS ORDERED: fentaNYL 100 MCG/2 ML VIAL ONE (15:04)
[2021-02-28] MEDS ORDERED: MIDAZOLAM 2 MG/2 ML VIAL ONE (15:04)
[2021-02-28] MEDS ORDERED: PROPOFOL 200 MG/20 ML VIAL IVP ONE (15:05)
[2021-02-28] MEDS ORDERED: LIDOCAINE-MPF 2% 5 ML VIAL ONE (15:05)
[2021-02-28] MEDS ORDERED: ROCURONIUM 50 MG/5 ML VIAL ONE (15:06)
[2021-02-28] MEDS ORDERED: LACTATED RINGERS 1,000 ML ONE (15:10)
[2021-02-28] MEDS ORDERED: ceFAZolin 1 GM VIAL ONE (15:29)
[2021-02-28] MEDS ORDERED: BUPIVACAINE 0.5% PF 30 ML VIAL INFIL ONE (15:43)
[2021-02-28] MEDS ORDERED: BUPIVACAINE 0.5% PF 10 ML VIAL SUBQ ONE (15:43)
[2021-02-28] MEDS ORDERED: LIDOCAINE MPF 2%-EPI 1:200000 20 ML VIAL SUBQ ONE (15:43)
[2021-02-28] MEDS ORDERED: ONDANSETRON 4 MG/2 ML VIAL ONE (16:04)
[2021-02-28] MEDS ORDERED: ROPIVACAINE 0.5% PF 20 ML AMPULE ONE (16:04)
[2021-02-28] MEDS ORDERED: DEXAMETHASONE 4 MG/ML VIAL ONE (16:04)
--- NOTE | 2021-02-28 16:32 | OPERATIVE REPORT ---
Operative Report - General Admit Date: 02/27/21 Procedure Date: 02/28/21 Planned Procedure: exploratory laparotomy and lysis of adhesions Pre-Op Diagnosis: small bowel obstruction Procedure Performed: exploratory laparotomy with lysis of adhesions Post Op Diagnosis: small bowel obstruction - Procedure Note Primary Surgeon: orin rodriguez Secondary Surgeon: lionel alcala Anesthesia Technique: General ET tube Pathology: none Estimated Blood Loss (mL): 0 Drain/Tube Type: Other (none) Indications: failed medical management of sbo Findings: extensive adhesions causing obstruction Complications: none
[2021-02-28] MEDS ORDERED: SUGAMMADEX 200 MG/2 ML VIAL IVP ONE (16:42)
[2021-02-28] MEDS ORDERED: LACTATED RINGERS 1,000 ML IV ONE ×2 (16:54→17:09)
--- NOTE | 2021-02-28 18:27 | ANESTHESIA POST OP EVALUATION ---
Anesthesia Post Eval - Post Anesthesia Eval Vitals: Last Vital Signs Temp 36.7 C 02/28/21 18:11 Pulse 87 02/28/21 18:11 Resp 15 02/28/21 18:11 BP 127/55 L 02/28/21 18:11 Pulse Ox 90 L 02/28/21 18:11 CV Function Including HR & BP: Stable Pain Control: Satisfactory Nausea & Vomiting: Negative Mental Status: Baseline Respiratory Status: Airway Patent Hydration Status: Satisfactory Anesthesia Complications: None
[2021-02-28] MEDS: PRAVASTATIN 10 MG TABLET PO SCH (22:24)
[2021-02-28] MEDS ORDERED: FAMOTIDINE 20 MG TABLET ONE (22:25)
[2021-02-28] MEDS ORDERED: PRAVASTATIN 10 MG TABLET ONE (22:25)
[2021-02-28] MEDS: ACETAMINOPHEN 325 MG TABLET PO PRN (22:37)
[2021-02-28] MEDS ORDERED: ACETAMINOPHEN 325 MG TABLET PO ONE (23:11)
[2021-03-01] MEDS: SODIUM CHLORIDE FLUSH 0.9% 10 ML SYRINGE IVP SCH ×3 (00:13→18:15)
[2021-03-01] MEDS: D5.45NS W/20 MEQ KCL 1,000 ML IV SCH ×3 (02:11→18:14)
[2021-03-01] MEDS: LEVOTHYROXINE 112 MCG TABLET PO SCH (06:47)
[2021-03-01] MEDS ORDERED: PROCHLORPERAZINE 10 MG/2 ML VIAL IVP PRN ×2 (07:36→08:48)
[2021-03-01] MEDS ORDERED: ONDANSETRON ODT 4 MG TABLET TL PRN ×2 (07:36→08:48)
[2021-03-01] MEDS ORDERED: ONDANSETRON 4 MG/2 ML VIAL IVP PRN ×2 (07:36→08:48)
[2021-03-01] MEDS ORDERED: HYDROmorphone 0.5 MG/0.5 ML SYRINGE IVP PRN ×2 (07:37→08:48)
[2021-03-01] MEDS ORDERED: ACETAMINOPHEN 325 MG TABLET PO PRN ×2 (07:37→08:48)
[2021-03-01] MEDS ORDERED: MAG HYDROX/AL HYDROX/SIMETH 30 ML UDC PO PRN ×2 (07:38→08:49)
[2021-03-01] MEDS ORDERED: SODIUM CHLORIDE FLUSH 0.9% 10 ML SYRINGE IVP PRN ×2 (07:51→08:49)
[2021-03-01] MEDS ORDERED: LEVOTHYROXINE 112 MCG TABLET PO SCH (08:00)
[2021-03-01] MEDS ORDERED: D5.45NS W/20 MEQ KCL 1,000 ML IV SCH (08:00)
[2021-03-01] MEDS ORDERED: FAMOTIDINE 20 MG TABLET PO SCH (09:00)
[2021-03-01] MEDS ORDERED: SODIUM CHLORIDE FLUSH 0.9% 10 ML SYRINGE IVP SCH (09:00)
[2021-03-01] MEDS: FAMOTIDINE 20 MG TABLET PO SCH ×2 (09:24→20:24)
--- NOTE | 2021-03-01 11:06 | PROVIDER PROGRESS NOTE ---
Subjective - General Admit Date: 02/27/21 Procedure Date: 02/28/21 Post Op Days: 1 Procedure Performed: Ex lap with lysis of adhesions - Review of Systems Wound/Incisions: positive: Healing well Drain Type: NG Drain Output Description: greenish fluid Objective - Patient Data Vital Signs: Vital Signs x48h Temp Pulse Resp BP Pulse Ox 03/01/21 07:55 36.7 C 76 20 125/60 95 03/01/21 05:22 37.1 C 75 18 124/60 93 Weight: Weight 02/27/21 02/28/21 03/01/21 23:59 23:59 23:59 Weight (kg) 61.5 kg Intake & Output: Intake and Output Totals x24h 02/27/21 02/28/21 03/01/21 23:59 23:59 23:59 Intake Total 2983.333 2169.670 4163.917 Output Total 3600 2825 1775 Balance -616.667 -827.083 -772.083 - Lab Results Lab Results: 02/26/21 06:10 02/28/21 06:33 - Current Medications Current Medications: Current Medications Generic Name Dose Route Start Last Admin Trade Name Freq PRN Reason Stop Dose Admin Famotidine 20 mg 03/01/21 09:00 03/01/21 09:24 Famotidine 20 Mg Tablet PO 20 mg BID [facility]LAIRE Administration Potassium Chloride/Dextrose/Sod Cl 1,000 mls @ 125 mls/hr 03/01/21 09:00 10:17 D5.45ns W/20 Meq Kcl IV 125 mls/hr .Q8H [facility] Administration Sodium Chloride 10 ml 03/01/21 09:00 03/01/21 10:06 Sodium Chloride Flush 0.9% 10 Ml Syringe IVP Not Given 0100,0900,1700 BLAIRE - Physical Exam Wound/Incisions: positive: Healing well Abdomen: positive: Non-tender, No distention Impression/Plan - Problem List Problem List: POD#1 s/p lysis of adhesions. Patient is reluctant to ambulate due to incisional pain, doesn;t want sarah out because she will need to walk to bathroom. Encouraged patient to get OOB and sit in chair at least, ambulate if possible. Continue NG to suction, sarah.
[2021-03-01] MEDS: KETOROLAC 15 MG/ML VIAL IVP PRN ×2 (12:42→20:23)
[2021-03-01] MEDS: PRAVASTATIN 10 MG TABLET PO SCH (20:25)
[2021-03-01] MEDS ORDERED: PRAVASTATIN 10 MG TABLET PO SCH (21:00)
[2021-03-02] MEDS: SODIUM CHLORIDE FLUSH 0.9% 10 ML SYRINGE IVP SCH ×3 (00:12→16:02)
[2021-03-02] MEDS: D5.45NS W/20 MEQ KCL 1,000 ML IV SCH ×4 (01:49→20:28)
[2021-03-02] MEDS: KETOROLAC 15 MG/ML VIAL IVP PRN ×3 (03:07→20:26)
[2021-03-02] MEDS: LEVOTHYROXINE 112 MCG TABLET PO SCH (06:03)
[2021-03-02] MEDS ORDERED: LEVOTHYROXINE 112 MCG TABLET PO SCH (07:00)
[2021-03-02] MEDS: FAMOTIDINE 20 MG TABLET PO SCH ×2 (08:54→20:31)
--- NOTE | 2021-03-02 09:59 | PROVIDER PROGRESS NOTE ---
Subjective - General Admit Date: 02/27/21 Procedure Date: 02/28/21 Post Op Days: 2 Procedure Performed: Ex lap with lysis of adhesions - Review of Systems Wound/Incisions: positive: Healing well General: positive: No symptoms Objective - Patient Data Reviewed Vital Signs: Yes Vital Signs: Vital Signs x48h Temp Pulse Resp BP Pulse Ox 03/02/21 07:50 37.4 C 75 16 156/79 H 94 03/02/21 04:59 37.0 C 70 18 148/73 H 94 Weight: Weight 02/28/21 03/01/21 03/02/21 23:59 23:59 23:59 Weight (kg) 61.5 kg Intake & Output: Intake and Output Totals x24h 02/28/21 03/01/21 03/02/21 23:59 23:59 23:59 Intake Total 9645.966 9799.667 977.917 Output Total 2825 2800 400 Balance -827.083 896.667 577.917 - Lab Results Lab Results: 02/26/21 06:10 02/28/21 06:33 - Current Medications Current Medications: Current Medications Generic Name Dose Route Start Last Admin Trade Name Freq PRN Reason Stop Dose Admin Famotidine 20 mg 03/01/21 09:00 03/02/21 08:54 Famotidine 20 Mg Tablet PO 20 mg BID [facility] Administration Potassium Chloride/Dextrose/Sod Cl 1,000 mls @ 125 mls/hr 03/01/21 09:00 1 05/03/20 01:49 D5.45ns W/20 Meq Kcl IV 125 mls/hr .Q8H [facility] Administration Ketorolac Tromethamine 15 mg 03/01/21 12:14 03/02/21 09:06 Ketorolac 15 Mg/Ml Vial IVP 03/06/21 12:13 15 mg Q6HR PRN Administration PAIN Levothyroxine Sodium 112 mcg 03/02/21 07:00 03/02/21 06:03 Levothyroxine 112 Mcg Tablet PO 112 mcg QDAC [facility] Administration Pravastatin Sodium 10 mg 03/01/21 21:00 03/01/21 20:25 Pravastatin 10 Mg Tablet PO Not Given QPM [facility]LA[facility] Sodium Chloride 10 ml 03/01/21 09:00 03/02/21 08:56 Sodium Chloride Flush 0.9% 10 Ml Syringe IVP Not Given 0100,0900,1700 BLAIRE Sodium Chloride 10 ml 03/01/21 08:49 03/02/21 00:21 Sodium Chloride Flush 0.9% 10 Ml Syringe IVP 10 ml PRN PRN Administration NEEDED PER PROVIDER ORDERS - Physical Exam Wound/Incisions: positive: Healing well Abdomen: positive: Non-tender, Nml bowel sounds, No distention Impression/Plan - Problem List Problem List: s/p ex lap with lysis of adhesions, doing well with active bowel sounds. NG discontinued, will start clears Ambulate.
[2021-03-02] MEDS: PRAVASTATIN 10 MG TABLET PO SCH ×2 (20:31→20:33)
[2021-03-03] MEDS: SODIUM CHLORIDE FLUSH 0.9% 10 ML SYRINGE IVP SCH ×2 (01:04→08:39)
[2021-03-03] MEDS: D5.45NS W/20 MEQ KCL 1,000 ML IV SCH (04:23)
[2021-03-03] MEDS: LEVOTHYROXINE 112 MCG TABLET PO SCH (05:50)
[2021-03-03 08:17] VITALS: BP 143/71
[2021-03-03] MEDS: FAMOTIDINE 20 MG TABLET PO SCH (08:39)
--- NOTE | 2021-03-03 11:01 | Discharge Plan ---
Discharge Plan Problem Reviewed?: Yes Disposition: Home, Self Care Diet: Regular (light mostly liquid/ soft diet for several days avoid raw fruits and vegetables until doing well on a soft diet) Activity Restrictions: No Restrictions Shower Restrictions: No Driving Restrictions: No Assessment: doing well after surgery for bowel obstruction Additional Instructions or Follow Up instructions: follow up with the surgery office in about a week call with any concerns call to make an appointment [phone] No Smoking: If you smoke, Please STOP! Call for help. Follow-up with: Aarti Adorno ARNP [Primary Care Provider] -
--- NOTE | 2021-03-03 11:04 | DISCHARGE SUMMARY ---
"Discharge Summary Admit Date: 02/25/21 Discharge Date: 03/03/21 Discharging Provider: orin rodriguez md Code Status: Attempt Resuscitation Condition at Discharge: Good Discharge Disposition: 01 Home, Self Care Discharge Facility Name: [facility] - DIAGNOSES Admission Diagnoses: small bowel obstruction Discharge Diagnoses with Status of Each Condition: home in good condition - HPI History of Present Illness: presented with small bowel obstruction. history of adrian/ bso and pelvic floor r econstruction 2017, failed medical management. surgery 02/28/2021 with lysis of adhesions. quickly improved. By 03/03/2021 taking liquids well without n/v and had return of bowel function. - CONSULTS | PROCEDURES Procedures: exploratory laparotomy with lysis of adhesions 03/03/2021 - ALLERGIES Allergies/Adverse Reactions: Allergies Allergy/AdvReac Type Severity Reaction Status Date / Time milk Allergy Unknown Verified 02/25/21 01:29 - MEDICATIONS Home Medications: Ambulatory Orders Medication Instructions Recorded Confirmed Levothyroxine [Synthroid] 112 mcg PO QDAC 09/20/13 02/25/21 Simvastatin [Zocor] 5 mg PO QPM 02/25/21 02/25/21 - PHYSICAL EXAM AT DISCHARGE General Appearance: positive: Alert Eyes Bilateral: positive: PERRL, EOMI ENT: positive: No signs of dehydration Neck: positive: No JVD Respiratory: positive: No respiratory distress Abdomen: positive: Non-tender, No distention, Other (incision healing nicely. no infection) Neurologic/Psychiatric: positive: Oriented x3 - LABS Result Diagrams: 02/26/21 06:10 02/28/21 06:33 - FOLLOW UP Follow Up: surgery in about a week. please call with any concerns and call to make an appointment [phone]"
--- NOTE | 2021-03-05 11:05 | OPERATIVE REPORT ---
Operative Report - General Admit Date: 02/27/21 Procedure Date: 02/28/21 Planned Procedure: exploratory laparotomy with lysis of adhesion, possible bowel resection Pre-Op Diagnosis: small bowel obstruction Procedure Performed: exploratory laparotomy with lysis of adhesions Post Op Diagnosis: small bowel obstruction - Procedure Note Primary Surgeon: orin rodriguez Secondary Surgeon: lionel alcala Anesthesia Technique: General ET tube, Local Pathology: none Estimated Blood Loss (mL): 0 Drain/Tube Type: Other (none) Indications: sbo Findings: adhesion causing bowel obstruction Complications: none - Other Other Information/Narrative: The patient was properly identified brought to the operating room and placed in supine position. General endotracheal anesthesia was induced. Monroe catheter was placed. Sequential compression devices were already on. She was prepped and draped in a sterile fashion and given preoperative antibiotics. A 6 cm incision was made approximately 4 cm caudad of the umbilicus. Dissection proceeded down to the fascia. Fascia was carefully opened. Peritoneum was opened sharply. There were no adhesions to the anterior abdominal wall. Omentum was adherent in the upper abdomen. She had dense small bowel adhesions. Lesions were not causing obstruction or problem. Adhesions causing a kink or twist in the bowel and bowel obstruction were carefully taken down with sharp dissection or use of cutting current cautery. The obstruction and twist in the bowel was released. Bowel was carefully placed back into the abdominal cavity. There were no apparent injuries. Counts were correct. Fascia was closed with 2 running 0 PDS suture. Subcutaneous tissue was closed with interrupted 2-0 Vicryl suture. Skin was closed with a running 4-0 Monocryl subcuticular suture. Skin glue was placed as a dressing. She tolerated the procedure well was awakened and brought to recovery in good condition.
== END 2021-03-03 12:30 | disposition home or self-care (01) | DRG 337 ==
LOC: ED 01:05 → MS2 17:18 → OBSVTOIN 02-27 13:39
PROVIDERS: ADMIT Surgery; ATTEND Surgery
PROC: 0DN80ZZ Release Small Intestine, Open Approach (ICD-10-PCS; principal; 2021-02-28 15:00)
DX: K56.609 Unspecified intestinal obstruction, unspecified as to partial versus complete obstruction (principal); K56.50 Intestinal adhesions [bands], unspecified as to partial versus complete obstruction; Z20.822 Contact with and (suspected) exposure to COVID-19; M19.90 Unspecified osteoarthritis, unspecified site; E03.9 Hypothyroidism, unspecified
CPT/HCPCS: 36415; 43753; 71045; 74177; 80048; 80053; 81001; 83690; 84443; 85025; 85027; 85610; 87086; 87631; 93005; 96374; 96375; 96376; 99284; 99285; A9270; G0378; J1170; J7120; Q9967; 0202U; 81003

== ENCOUNTER 2022-08-14 08:26 | Outpatient (CLI) | payer MEDICARE ==
[2022-08-14 15:00] LABS: BASOPHILS # (AUTO) 0.1 10^3/uL (0.0-0.1); BASOPHILS % (AUTO) 1.3 %; EOSINOPHILS # (AUTO) 0.2 10^3/uL (0.0-0.7); EOSINOPHILS % (AUTO) 3.6 %; HCT - HEMATOCRIT 45.1 % (37.0-47.0); HGB - HEMOGLOBIN 14.2 g/dL (12.0-16.0); LYMPHOCYTES # (AUTO) 2.5 10^3/uL (1.5-3.5); LYMPHOCYTES % (AUTO) 39.2 %; MEAN CORPUSCULAR HEMOGLOBIN 28.1 pg (27.0-31.0); MEAN CORPUSCULAR HGB CONC 31.5 g/dL (32.0-36.0); MEAN CORPUSCULAR VOLUME 89.1 fL (81.0-99.0); MEAN PLATELET VOLUME 10.3 fL (7.9-10.8); MONOCYTES # (AUTO) 0.5 10^3/uL (0.0-1.0); MONOCYTES % (AUTO) 7.9 %; NEUTROPHILS % (AUTO) 47.5 %; PLT - PLATELET COUNT 266 10^3/uL (130-450); RED BLOOD COUNT 5.06 10^6/uL (4.20-5.40); RED CELL DISTRIBUTION WIDTH 15.2 % (12.0-15.0); WHITE BLOOD COUNT 6.4 x10^3/uL (4.8-10.8)
[2022-08-14 15:38] LABS: T4 (THYROXINE) 9.23 ug/dL (6.09-12.23)
[2022-08-14 15:42] LABS: THYROID STIMULATING HORMONE 6.06 uIU/mL (0.34-5.60)
[2022-08-14 15:45] LABS: ALBUMIN 4.1 g/dL (3.2-5.5); ALBUMIN/GLOBULIN RATIO 1.3 (1.0-2.2); ALKALINE PHOSPHATASE 64 IU/L (42-121); ALT ALANINE AMINOTRANSFERASE 22 IU/L (10-60); AST ASPARTATE AMINOTRANSFERASE 29 IU/L (10-42); BILIRUBIN,TOTAL 0.8 mg/dL (0.2-1.0); BUN - BLOOD UREA NITROGEN 22 mg/dL (6-20); CALCIUM 9.4 mg/dL (8.5-10.3); CARBON DIOXIDE - CO2 27 mmol/L (21-32); CHLORIDE 102 mmol/L (101-111); CHOL/HDL RATIO 2.6 (<4.4); CHOLESTEROL 243 mg/dL; CREATININE 0.8 mg/dL (0.4-1.0); GFR - MDRD 69 (>89); GLUCOSE 90 mg/dL (70-100); HDL CHOLESTEROL 93 mg/dL; LDL CHOLESTEROL,CALCULATED 136 mg/dL; LDL/HDL RATIO 1.5 (<4.4); POTASSIUM 4.3 mmol/L (3.5-5.0); SODIUM 141 mmol/L (135-145); TOTAL PROTEIN 7.3 g/dL (6.7-8.2); TRIGLYCERIDES 69 mg/dL; VLDL CHOLESTEROL 14 mg/dL
== END 2022-08-14 08:27 | disposition home or self-care (01) ==
LOC: LAB.S 08:26
PROVIDERS: ATTEND Registered Nurse
DX: Z13.29 Encounter for screening for other suspected endocrine disorder (principal); E78.5 Hyperlipidemia, unspecified; Z79.899 Other long term (current) drug therapy
CPT/HCPCS: 36415; 80053; 80061; 83721; 84436; 84443; 84480; 85025

== ENCOUNTER 2022-10-12 09:47 | Outpatient (CLI) | payer MEDICARE ==
[2022-10-12 10:15] LABS: BASOPHILS # (AUTO) 0.1 10^3/uL (0.0-0.1); BASOPHILS % (AUTO) 1.1 %; EOSINOPHILS # (AUTO) 0.2 10^3/uL (0.0-0.7); EOSINOPHILS % (AUTO) 2.8 %; HCT - HEMATOCRIT 47.5 % (37.0-47.0); LYMPHOCYTES # (AUTO) 2.7 10^3/uL (1.5-3.5); LYMPHOCYTES % (AUTO) 37.7 %; MEAN CORPUSCULAR HEMOGLOBIN 27.9 pg (27.0-31.0); MEAN CORPUSCULAR HGB CONC 31.6 g/dL (32.0-36.0); MEAN CORPUSCULAR VOLUME 88.3 fL (81.0-99.0); MEAN PLATELET VOLUME 9.7 fL (7.9-10.8); MONOCYTES # (AUTO) 0.5 10^3/uL (0.0-1.0); MONOCYTES % (AUTO) 6.8 %; NEUTROPHILS # (AUTO) 3.7 10^3/uL (1.5-6.6); NEUTROPHILS % (AUTO) 51.5 %; PLT - PLATELET COUNT 253 10^3/uL (130-450); RED BLOOD COUNT 5.38 10^6/uL (4.20-5.40); RED CELL DISTRIBUTION WIDTH 13.7 % (12.0-15.0); WHITE BLOOD COUNT 7.3 x10^3/uL (4.8-10.8)
[2022-10-12 10:36] LABS: ALBUMIN 4.6 g/dL (3.2-5.5); ALBUMIN/GLOBULIN RATIO 1.6 (1.0-2.2); ALKALINE PHOSPHATASE 66 IU/L (42-121); ALT ALANINE AMINOTRANSFERASE 15 IU/L (10-60); AST ASPARTATE AMINOTRANSFERASE 21 IU/L (10-42); BILIRUBIN,TOTAL 0.6 mg/dL (0.2-1.0); BUN - BLOOD UREA NITROGEN 24 mg/dL (6-20); CALCIUM 10.1 mg/dL (8.5-10.3); CARBON DIOXIDE - CO2 31 mmol/L (21-32); CHLORIDE 104 mmol/L (101-111); CHOLESTEROL 223 mg/dL; CREATININE 0.8 mg/dL (0.6-1.3); GFR - MDRD 69 (>89); GLUCOSE 98 mg/dL (74-104); HDL CHOLESTEROL 74 mg/dL; LDL CHOLESTEROL,CALCULATED 129 mg/dL; LDL/HDL RATIO 1.7 (<4.4); POTASSIUM 4.2 mmol/L (3.5-4.5); SODIUM 138 mmol/L (135-145); TOTAL PROTEIN 7.5 g/dL (6.4-8.9); TRIGLYCERIDES 98 mg/dL (48-352); VLDL CHOLESTEROL 20 mg/dL
[2022-10-12 11:05] LABS: THYROID STIMULATING HORMONE 1.19 uIU/mL (0.34-5.60)
== END 2022-10-12 09:48 | disposition home or self-care (01) ==
LOC: LAB 09:47
PROVIDERS: ATTEND Registered Nurse
DX: E78.5 Hyperlipidemia, unspecified (principal); Z79.899 Other long term (current) drug therapy; E03.9 Hypothyroidism, unspecified
CPT/HCPCS: 36415; 80053; 80061; 83721; 84443; 85025

== ENCOUNTER 2022-10-12 09:48 | Outpatient (CLI) | payer MEDICARE ==
--- NOTE | 2022-10-13 10:13 | Mammography Report ---
BILATERAL DIGITAL SCREENING MAMMOGRAM 3D/2D: 10/12/2022 CLINICAL: Routine screening. Comparison is made to exams dated: 09/16/2021 mammogram, 09/08/2018 mammogram, 07/21/2016 mammogram, 09/03 mammogram, 07/21/2013 mammogram, and 07/12/2012 mammogram - [facility]. Both breasts are extremely dense, which lowers the sensitivity of mammography (category d />75% gland ular tissue). No significant masses, calcifications, or other findings are seen in either breast. There has been no significant interval change. IMPRESSION: NEGATIVE There is no mammographic evidence of malignancy. A 1 year screening mammogram is recommended. Based on the Tyrer Cuzick model (a risk assessment model) the patients lifetime risk is 0.9% and her 10 year risk is 0.0%. According to the ACR, ACS, and NCCN guidelines, an annual breast MRI exam juancarlos g with mammogram is recommended if the patients lifetime risk is 20% or greater. This exam was interpreted at Station ID: [id number]. NOTE: For mammograms, a report in lay terms will be sent to the patient. Approximately 15% of breast malignancies will not be visualized mammographically. In the management of a palpable breast mass, a negative mammogram must not discourage biopsy of a clinically suspicious lesion. Electronically Signed By: Savannah [email or web address]:10/12/2022 15:09:25 letter sent: No_Letter ACR BI-RADS Category 1: Negative 3341F PARENCHYMAL PATTERN: (VD) - The breast(s) demonstrate(s) extremely dense parenchyma, limiting the sen sitivity of mammography. BI-RADS CATEGORY: (1) - 1 Mammogram [id number] 1 year screening LATERALITY: (B)
== END 2022-10-12 09:49 | disposition home or self-care (01) ==
LOC: DI 09:48
PROVIDERS: ATTEND Registered Nurse
DX: Z12.31 Encounter for screening mammogram for malignant neoplasm of breast (principal)

== ENCOUNTER 2023-02-23 08:47 | Outpatient (CLI) | payer MEDICARE | END 2023-02-23 08:48 | disposition home or self-care (01) | LOC: LAB.S 08:47 | PROVIDERS: ATTEND Registered Nurse | DX: Z87.898 Personal history of other specified conditions (principal) | CPT/HCPCS: 81599; 82480 ==

== ENCOUNTER 2023-10-12 13:56 | Outpatient (CLI) | payer MEDICARE ==
--- NOTE | 2023-10-13 19:58 | DEXA Report ---
PROCEDURE: Dexa Spine and/or Hip INDICATIONS: POST MENOPAUSAL TECHNIQUE: Dual energy x-ray absorptiometry (DEXA) was performed in the regions detailed below. COMPARISON: None. FINDINGS: Lumbar Spine: Bone Mineral Density 1.079 g/cm/cm,T score -0.8. Normal Left Femoral Neck: Bone Mineral Density 0.630 g/cm/cm, T score -2.9. Osteopenia Left Total Hip: Bone Mineral Density 0.618 g/cm/cm,T score -3.1. Osteopenia (T score greater or equal to -1.0: NORMAL) (T score from -1.1 to -2.4: OSTEOPENIA) (T score less than or equal to -2.5 to: OSTEOPOROSIS) IMPRESSION: Osteopenia Patients with diagnosis of osteoporosis or osteopenia should have regular bone mineral density assess ment. For those eligible for Medicare, routine testing is allowed once every 2 years. Testing frequ ency can be increased for patients who have rapidly progressing disease or for those who are receivin g medical therapy to restore bone mass. Reviewed by: Rick Aleman MD on 10/13/2023 6:57 PM LEE ANN Approved by: Rick Aleman MD on 10/13/2023 6:57 PM LEE ANN Station ID: [id number]
== END 2023-10-12 13:57 | disposition home or self-care (01) ==
LOC: DI 13:56
PROVIDERS: ATTEND Registered Nurse
DX: M81.0 Age-related osteoporosis without current pathological fracture (principal); Z78.0 Asymptomatic menopausal state